=== PATIENT | female | born 1940 | race Caucasian/White ===

== ENCOUNTER 2016-06-17 15:16 | Outpatient (CLI) | payer MEDICARE, OTHER | END 2016-06-17 15:17 | disposition home or self-care (01) | DX: R10.13 Epigastric pain (principal) ==

== ENCOUNTER 2016-06-25 06:52 | Outpatient (CLI) | payer MEDICARE, OTHER | END 2016-06-25 06:53 | disposition home or self-care (01) | DX: K80.20 Calculus of gallbladder without cholecystitis without obstruction (principal) ==

== ENCOUNTER 2016-07-06 14:36 | Outpatient (CLI) | payer MEDICARE, OTHER | END 2016-07-06 14:37 | disposition home or self-care (01) | LOC: LAB.F 14:36 | PROVIDERS: ATTEND Internal Medicine | DX: M06.9 Rheumatoid arthritis, unspecified (principal) | CPT/HCPCS: 36415; 86140 ==

== ENCOUNTER 2016-07-08 14:22 | Emergency (ER) | payer MEDICARE, OTHER ==
[2016-07-08 14:29] VITALS: BP 135/94
--- NOTE | 2016-07-08 15:17 | ED Physician Documentation ---
PD HPI ABD PAIN - Stated complaint Stated Complaint: ABD PX - Chief complaint Chief Complaint: Abd Pain - History obtained from History obtained from: Patient - History of Present Illness Timing - onset: How many weeks ago (2) Timing - duration: Weeks (2) Timing - details: Gradual onset, Still present Quality: Sharp, Pain Location: RUQ Improved by: Laying still Worsened by: Eating Associated symptoms: Nausea Similar symptoms before: Diagnosis (cholelithiasis) Recently seen: Clinic (The patient has been seen and had an ultrasound done on showing the stones.) - Additional information Additional information: 76 y/o female gives a history of RUQ pain that she states has been present for the past 2 weeks. She is vague about the history but insists that the pain has been continuous. I asked if it kept her awake at night and she indicated that she sleeps very well. She has not had fever and she has not followed up with surgery. Review of Systems Constitutional: denies: Fever, Chills, Myalgias Eyes: denies: Decreased vision Ears: denies: Ear pain Nose: denies: Congestion Throat: denies: Sore throat Cardiac: denies: Chest pain / pressure, Palpitations Respiratory: denies: Dyspnea, Cough GI: reports: Abdominal Pain, Nausea. 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 HEENT: Cataracts - Present Medications Home Medications: Ambulatory Orders Medication Instructions Recorded Confirmed Calcium Crb,Cit/D3/Min34/[place] 1 each PO DAILY 12/31/12 12/16/14 [Citracal + Bone Density Tablet] Cholecalciferol (Vitamin D3) 2,000 unit PO DAILY 12/31/12 12/16/14 [Vitamin D-3] Folic Acid 1 mg PO DAILY 12/31/12 12/16/14 Methotrexate Sodium/Pf 0.05 12/31/12 12/16/14 [Methotrexate 1 Gram/40 ml Vial] Multivitamin/Iron/Folic Acid 1 each PO DAILY 12/31/12 12/16/14 [Centrum Complete Multivit Tab] Sulfasalazine [Sulfazine] 500 mg PO BID 12/31/12 12/16/14 Vit A,C & E/Lutein/Minerals 1 each PO DAILY 12/31/12 12/16/14 [Ocuvite Tablet] Albuterol Sulf [Ventolin Hfa 1 - 2 puffs INH Q4HR PRN #1 inhaler 12/08/15 Inhaler] Donepezil HCl [Aricept] 10 mg 12/08/15 Zoledronic Acid [Reclast] 5 mg 12/08/15 predniSONE [Deltasone] 10 mg PO DAILY #26 tablet 12/08/15 - Allergies Allergies/Adverse Reactions: Allergies Allergy/AdvReac Type Severity Reaction Status Date / Time No Known Drug Allergies Allergy Verified 07/08/16 14:28 - Social History Does the pt smoke?: No Smoking Status: Never smoker Does the pt drink ETOH?: Yes PD ED PE NORMAL - Vitals Vital signs reviewed: Yes (hypertensive ) - General General: No acute distress, Well developed/nourished - HEENT HEENT: Atraumatic, PERRL - Neck Neck: Supple, no meningeal sign - Cardiac Cardiac: RRR, No murmur - Respiratory Respiratory: No respiratory distress, Clear bilaterally - Abdomen Abdomen: Soft, Other (specific right upper quadrant pain sonographically tender gallbladder. on bedside. ) - Back Back: No CVA TTP, No spinal TTP - Derm Derm: Normal color, Warm and dry, No rash - Extremities Extremities: No deformity, No edema - Neuro Neuro: No motor deficit, No sensory deficit - Psych Psych: Normal mood, Normal affect Results - Vitals Vitals: Vital Signs - 24 hr 07/08/16 14:24 Temperature 36.5 C Heart Rate 90 Respiratory 14 Rate Blood Pressure 135/94 H O2 Saturation 99 Oxygen O2 Source Room air - Labs Labs: Laboratory Tests 07/08/16 07/08/16 07/08/16 15:00 15:00 15:00 WBC 5.5 RBC 4.04 L Hgb 12.0 Hct 36.7 L MCV 91.0 MCH 29.8 MCHC 32.8 RDW 14.3 Plt Count 288 MPV 6.8 L Neut # 3.0 Lymph # 1.6 [place] # 0.7 Eos # 0.1 Baso # 0.0 Absolute Nucleated RBC 0.00 Nucleated RBCs 0.0 Sodium 138 Potassium 3.8 Chloride 106 Carbon Dioxide 22 Anion Gap 10.0 BUN 22 H Creatinine 0.6 Estimated GFR (MDRD) 97 Glucose 99 Calcium 8.8 Total Bilirubin 0.6 AST 21 ALT 26 Alkaline Phosphatase 72 Troponin I < 0.04 Total Protein 6.7 Albumin 3.9 Globulin 2.8 Albumin/Globulin Ratio 1.4 Lipase 53 H - Rads (name of study) U/S abd ltd Radiology: Prelim report reviewed (Impression: 1. Cholelithiasis without evidence of cholecystitis. 2. New mild right hydronephrosis. Correlate clinically determine if obstructive uropathy might etiology of this lady's persistent symptoms. If so, CT abdomen pelvis without contrast may be useful. ( However, cursory review of the patient's contrast CT study 06/23/2014 shows a small bilateral extra renal pelvis his but no hydronephrosis nor renal stones.)) Procedures - Bedside sono Bedside sono by EMP: with the use of bedside ultrasound the gallbladder is imaged and is sonographically tender with stones present. PD MEDICAL DECISION MAKING - ED course Complexity details: reviewed old records, reviewed results, re-evaluated patient , considered differential, d/w patient ED course: 76 y/o female with some mild dementia has developed gallbladder symptoms. She reports a 2 week history of continued pain and on exam she has a tender gallbladder with stones present. Interestingly, after sonographic exam by myself , her pain improved. Her formal exam demonstrates the stones and no evidence of obstruction or cholecyctitis. I have discussed findings with the patient and she will follow up with surgery. Departure - Departure Disposition: 01 Home, Self Care Clinical Impression: Cholelithiasis Qualifiers: Cholelithiasis location: gallbladder Cholecystitis presence: without cholecystitis Biliary obstruction: without biliary obstruction Qualified Code(s) : K80.20 - Calculus of gallbladder without cholecystitis without obstruction Condition: Stable Instructions: ED Gallstone W Biliary Colic Follow-Up: Hollis Perez MD [Primary Care Provider] - Juan Craig MD [Provider Admit Priv/Credential] -
[2016-07-08 15:27] LABS: BASOPHILS % (AUTO) 0.8 %; EOSINOPHILS # (AUTO) 0.1 10^3/uL (0.0-0.7); EOSINOPHILS % (AUTO) 1.5 %; HCT - HEMATOCRIT 36.7 % (37.0-47.0); LYMPHOCYTES # (AUTO) 1.6 10^3/uL (1.5-3.5); LYMPHOCYTES % (AUTO) 29.6 %; MEAN CORPUSCULAR HEMOGLOBIN 29.8 pg (27.0-31.0); MEAN CORPUSCULAR HGB CONC 32.8 g/dL (32.0-36.0); MEAN PLATELET VOLUME 6.8 fL (7.9-10.8); MONOCYTES # (AUTO) 0.7 10^3/uL (0.0-1.0); MONOCYTES % (AUTO) 13.3 %; NEUTROPHILS % (AUTO) 54.8 %; RED BLOOD COUNT 4.04 10^6/uL (4.20-5.40); RED CELL DISTRIBUTION WIDTH 14.3 % (12.0-15.0); UNCORRECTED WHITE BLOOD COUNT 5.5 x10^3/uL; WHITE BLOOD COUNT 5.5 x10^3/uL (4.8-10.8)
[2016-07-08 15:41] LABS: ALBUMIN/GLOBULIN RATIO 1.4 (1.0-2.2); BILIRUBIN,TOTAL 0.6 mg/dL (0.2-1.0); CALCIUM 8.8 mg/dL (8.5-10.3); CREATININE 0.6 mg/dL (0.4-1.0); POTASSIUM 3.8 mmol/L (3.5-5.0); TOTAL PROTEIN 6.7 g/dL (6.7-8.2)
--- NOTE | 2016-07-08 17:22 | Ultrasound Preliminary Report ---
Exam: US ABDOMEN LIMITED IMPRESSION: 1. Cholelithiasis without evidence of cholecystitis. 2. New mild right hydronephrosis. Correlate clinically to determine if obstructive uropathy might be the etiology of this lady's persistent symptoms. If so, CT abdomen and pelvis without contrast may be useful. (However, cursory review of the patient's contrast CT study study 06/23/2014 shows small andi ateral extrarenal pelvises but no hydronephrosis nor renal stones.) [facility] SITE ID: [id number]
--- NOTE | 2016-07-08 17:53 | Ultrasound Report ---
EXAM: ABDOMEN ULTRASOUND LIMITED, RUQ EXAM DATE: 07/08/2016 04:54 PM. CLINICAL HISTORY: Gallstones. Persistent right upper quadrant pain. COMPARISON: 06/25/2016. TECHNIQUE: Real-time scanning was performed with static images obtained. FINDINGS: Liver: Normal in size and echotexture. 13.8 cm. Main portal vein flow: Hepatopetal. Gallbladder: Numerous tiny mobile gallstones. Gallbladder of normal caliber. No gallbladder wall thic kening, focal tenderness, nor pericholecystic fluid. Biliary System: CBD measures 2.9 mm. No intrahepatic or extrahepatic ductal dilatation. Other: Interval development of mild right hydronephrosis. IMPRESSION: 1. Cholelithiasis without evidence of cholecystitis. 2. New mild right hydronephrosis. Correlate clinically to determine if obstructive uropathy might be the etiology of this lady's persistent symptoms. If so, CT abdomen and pelvis without contrast may be useful. (However, cursory review of the patient's contrast CT study 06/23/2014 shows small bilateral extrarenal pelvises but no hydronephrosis nor renal stones.) [facility] Referring Provider Line: [phone] SITE ID: [id number]
== END 2016-07-08 17:53 | disposition home or self-care (01) ==
LOC: ED 14:22
DX: K80.20 Calculus of gallbladder without cholecystitis without obstruction (principal)
CPT/HCPCS: 36415; 76705; 80053; 83690; 84484; 85025; 99283; 99284

== ENCOUNTER 2016-07-22 09:34 | Outpatient (CLI) | payer MEDICARE, OTHER ==
--- NOTE | 2016-07-22 12:34 | CT Report ---
CT ABDOMEN AND PELVIS WITHOUT CONTRAST: 07/22/2016 CLINICAL INDICATION: Possible right hydronephrosis on ultrasound. TECHNIQUE: Axial CT images of the abdomen and pelvis were obtained without intravenous contrast. In accordance with CT protocol optimization, one or more of the following dose reduction techniques w ere utilized for this exam: automated exposure control, adjustment of mA and/or KV based on patient size, or use of iterative reconstructive technique. COMPARISON: Ultrasound 07/08/2016, 06/25/2016, CT abdomen and pelvis 06/23/2014. FINDINGS: Limited evaluation of the lung bases demonstrates emphysema. Abdomen: The kidneys demonstrate extrarenal pelves. No hydronephrosis or nephrolithiasis is seen. The appearance of the kidneys is stable from 06/23/2014. The liver, spleen, pancreas, and adrenal gl ands appear unremarkable. The gallbladder is not dilated. Layering calculi are noted dependently. No bowel dilatation, free gas, or free fluid is present. No abdominal adenopathy is seen. Pelvis: The pelvic organs appear unremarkable. No pelvic adenopathy or free fluid is present. The patient is status post hysterectomy. There is a right inguinal hernia present, containing fat, witho ut evidence of bowel herniation. Osseous structures demonstrate degenerative changes. IMPRESSION: 1. NO EVIDENCE OF HYDRONEPHROSIS OR NEPHROLITHIASIS. STABLE APPEARANCE OF THE KIDNEYS FROM PREVIOUS CT OF 06/23/2014. 2. CHOLELITHIASIS. 3. RIGHT INGUINAL HERNIA, CONTAINING FAT, WITHOUT EVIDENCE OF BOWEL HERNIATION. JOB #: [id number] EXT JOB #:[id number]
== END 2016-07-22 09:35 | disposition home or self-care (01) ==
LOC: DI 09:34
PROVIDERS: ATTEND Surgery
DX: K80.20 Calculus of gallbladder without cholecystitis without obstruction (principal); K44.9 Diaphragmatic hernia without obstruction or gangrene
CPT/HCPCS: 74176

== ENCOUNTER 2017-01-09 15:32 | Outpatient (CLI) | payer MEDICARE, OTHER | END 2017-01-09 15:33 | disposition critical access hospital (66) | LOC: EMS 15:32 | PROVIDERS: ATTEND Surgery | DX: T14.90XA Injury, unspecified, initial encounter (principal); W01.0XXA Fall on same level from slipping, tripping and stumbling without subsequent striking against object, initial encounter; Y92.038 Other place in apartment as the place of occurrence of the external cause | CPT/HCPCS: A0425; A0427 ==

== ENCOUNTER 2017-01-09 15:57 | Emergency (ER) | payer MEDICARE, OTHER ==
[2017-01-09] MEDS ORDERED: MORPHINE 10 MG/ML VIAL IVP STA (16:07)
--- NOTE | 2017-01-09 16:09 | ED Physician Documentation ---
PD HPI UPPER EXT INJURY - Stated complaint Stated Complaint: FALL - Chief complaint Chief Complaint: Ext Problem - History obtained from History obtained from: Patient, EMS - History of Present Illness Location: Other (She had a trip and fall getting off the elevator at [facility] today landing on her left arm. It was an isolated injury. At first she says she is in no pain, then says my arm hurts like heck. She denies hitting her head or neck. 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 HEENT: Cataracts - Present Medications Home Medications: Ambulatory Orders Medication Instructions Recorded Confirmed Cholecalciferol (Vitamin D3) 2,000 unit PO DAILY 12/31/12 01/09/17 [Vitamin D-3] Multivitamin/Iron/Folic Acid 1 each PO DAILY 12/31/12 01/09/17 [Centrum Complete Multivit Tab] Sulfasalazine [Sulfazine] 1,000 mg PO BID 12/31/12 01/09/17 Donepezil HCl [Aricept] 10 mg ORAL DAILY 12/08/15 01/09/17 Amlodipine Besylate [Norvasc] 2.5 mg PO DAILY 01/09/17 01/09/17 HYDROcod/ACETAM 5/325 [[place] 5/325] 1 - 2 ea PO Q6H PRN #20 tablet 01/09/17 Sertraline [Zoloft] 25 mg PO DAILY 01/09/17 01/09/17 - Allergies Allergies/Adverse Reactions: Allergies Allergy/AdvReac Type Severity Reaction Status Date / Time No Known Drug Allergies Allergy Verified 01/09/17 16:05 - Social History Does the pt smoke?: No Smoking Status: Never smoker Does the pt drink ETOH?: Yes PD ED PE NORMAL - Vitals Vital signs reviewed: Yes - General General: Alert and oriented X 3, No acute distress - HEENT HEENT: PERRL, EOMI - Neck Neck: Supple, no meningeal sign, No bony TTP - Cardiac Cardiac: RRR, No murmur - Respiratory Respiratory: No respiratory distress, Clear bilaterally - Abdomen Abdomen: Normal bowel sounds, Soft, Non tender - Extremities Extremities: Other (Quite tender to the left upper arm in the area of the proximal humerus without deformity. Cannot range at all. Normal radial pulse and sensation in all areas of the hands. The remainder of her extremities are nontender.) - Neuro Neuro: Alert and oriented X 3 Eye Opening: Spontaneous Motor: Obeys Commands Verbal: Oriented GCS Score: 15 - Psych Psych: Normal mood, Normal affect Results - Vitals Vitals: Vital Signs - 24 hr 01/09/17 01/09/17 15:58 16:45 Temperature 36.3 C L Heart Rate 77 78 Respiratory 18 18 Rate Blood Pressure 138/98 H 139/88 H O2 Saturation 98 95 Oxygen O2 Source Room air - Rads (name of study) L humerus Radiology: EMP read contemporaneously (Proximal left humerus fracture) PD MEDICAL DECISION MAKING - ED course ED course: The patient and family were counseled as to the diagnosis and need for follow- up. I counseled the patient with regard to signs and symptoms that would necessitate an urgent reevaluation in the emergency department. They understand they are welcome to return at any time if worse or if not improving as expected. This document was made in part using voice recognition software. While efforts are made to proofread this documents, sound alike and grammatical errors may occur. Departure - Departure Disposition: 01 Home, Self Care Clinical Impression: Left humeral fracture Qualifiers: Encounter type: initial encounter Humerus Location: proximal Fracture type: closed Fracture morphology: other fracture Fracture alignment: nondisplaced Qualified Code(s): S42.295A - Other nondisplaced fracture of upper end of left humerus, initial encounter for closed fracture Condition: Good Record reviewed to determine appropriate education?: Yes Instructions: ED Fx Upper Ext Follow-Up: [facility] [Provider Group] - Within 1 week Prescriptions: HYDROcod/ACETAM 5/325 [[place] 5/325] 1 - 2 ea PO Q6H PRN #20 tablet PRN Reason: Pain Comments: Your blood pressure was elevated today on check into the emergency department. This does not mean that you have hypertension, it is a common phenomenon to come to the emergency department and have elevated blood pressure. I recommend that you see your primary care physician within the week to have it rechecked when you are feeling better. Do not drink or drive while taking narcotic pain medication. Note that many narcotic pain relievers also contain Tylenol/acetaminophen. Please ensure that your total dose of acetaminophen from all sources does not exceed 3 g (3000 mg) per day. You may get constipated while on this medication. Take a stool softener such as Colace twice a day while you are on it. Also add an [id number] laxative such as senna or MiraLAX on any day that you do not have a bowel movement. If you received a narcotic pain medication or sedative while in the emergency department, do not drive for the next 24 hours.
[2017-01-09] MEDS ORDERED: MORPHINE 10 MG/ML VIAL ONE (16:35)
--- NOTE | 2017-01-09 17:03 | XRAY Preliminary Report ---
Exam: XR HUMERUS LT IMPRESSION: Transversely oriented fracture to the proximal left humerus. A fracture line extends thro ugh the surgical neck. There is likely extension through the tuberosities. There is no evidence of di slocation. [facility] SITE ID: [id number]
--- NOTE | 2017-01-09 17:05 | XRAY Report ---
EXAM: LEFT HUMERUS RADIOGRAPHY EXAM DATE: 01/09/2017 04:30 PM. CLINICAL HISTORY: Trauma, pain. COMPARISON: None. TECHNIQUE: 2 views. FINDINGS: Bones: There is transversely orientated fracture through the proximal left humerus. Likely extension of fracture through the tuberosities. Joints: No evidence of dislocation. Soft Tissues: Normal. No soft tissue swelling. IMPRESSION: Transversely oriented fracture to the proximal left humerus. A fracture line extends thro ugh the surgical neck. There is likely extension through the tuberosities. There is no evidence of di slocation. [facility] Referring Provider Line: [phone] SITE ID: [id number]
[2017-01-09 17:40] VITALS: BP 124/74
== END 2017-01-09 17:37 | disposition home or self-care (01) ==
LOC: EDUNIT# → ED 15:57
DX: S42.295A Other nondisplaced fracture of upper end of left humerus, initial encounter for closed fracture (principal); W18.30XA Fall on same level, unspecified, initial encounter; I10 Essential (primary) hypertension; M06.9 Rheumatoid arthritis, unspecified
CPT/HCPCS: 96374; 99283; 99284

== ENCOUNTER 2017-11-12 13:41 | Outpatient (CLI) | payer MEDICARE, OTHER | END 2017-11-12 13:42 | disposition critical access hospital (66) | LOC: EMS 13:41 | PROVIDERS: ATTEND Surgery | DX: R52 Pain, unspecified (principal) | CPT/HCPCS: A0425; A0427 ==

== ENCOUNTER 2017-11-12 13:44 | Emergency (ER) | payer MEDICARE, OTHER ==
[2017-11-12 13:55] VITALS: BP 139/68
--- NOTE | 2017-11-12 14:01 | ED Physician Documentation ---
History of Present Illness - Stated complaint Stated Complaint: ANKLE SWELLING - Chief complaint Chief Complaint: General - History obtained from History obtained from: Patient, EMS - History of Present Illness Timing: Today (Per EMS, she was normal at breakfast but did not show up for Lunch ([place]). They went to check on her and had a lot of pain with ROM of LLE. No recollected fall but has dementia. 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 HEENT: Cataracts - Present Medications Home Medications: Ambulatory Orders Medication Instructions Recorded Confirmed Cholecalciferol (Vitamin D3) 2,000 unit PO DAILY 12/31/12 01/09/17 [Vitamin D-3] Multivitamin/Iron/Folic Acid 1 each PO DAILY 12/31/12 01/09/17 [Centrum Complete Multivit Tab] Sulfasalazine [Sulfazine] 1,000 mg PO BID 12/31/12 01/09/17 Donepezil HCl [Aricept] 10 mg ORAL DAILY 12/08/15 01/09/17 Amlodipine Besylate [Norvasc] 2.5 mg PO DAILY 01/09/17 01/09/17 HYDROcod/ACETAM 5/325 [[place] 5/325] 1 - 2 ea PO Q6H PRN #20 tablet 01/09/17 Sertraline [Zoloft] 25 mg PO DAILY 01/09/17 01/09/17 - Allergies Allergies/Adverse Reactions: Allergies Allergy/AdvReac Type Severity Reaction Status Date / Time No Known Drug Allergies Allergy Verified 11/12/17 13:55 - Social History Does the pt smoke?: No Smoking Status: Never smoker Does the pt drink ETOH?: Yes Does the pt have substance abuse?: No PD ED PE NORMAL - Vitals Vital signs reviewed: Yes - General General: Other (She is alert and pleasant and follows commands. She knows she is in the hospital but not why. She does not recollect this morning.) - HEENT HEENT: PERRL, EOMI - Neck Neck: Supple, no meningeal sign, No bony TTP - Cardiac Cardiac: RRR, No murmur - Respiratory Respiratory: No respiratory distress, Clear bilaterally - Abdomen Abdomen: Normal bowel sounds, Soft, Non tender - Extremities Extremities: Other (All extremities are palpated. She has significant changes of arthritis in the hands. She is quite tender over the right clavicle. She is tender over the left anterior superior iliac spine and also the anterior left knee and lateral left ankle. There is no swelling in any of these areas. 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 She does not remember any specific injury. She was sent for x-rays of the affected areas and all were negative. After the x-rays we got her up and she was ambulatory without any evidence of pain or discomfort. - Sepsis Event Vital Signs: Vital Signs - 24 hr 11/12/17 13:50 Temperature 36.5 C Heart Rate 76 Respiratory 16 Rate Blood Pressure 139/68 H O2 Saturation 97 Oxygen O2 Source Room air Departure - Departure Disposition: 01 Home, Self Care Clinical Impression: Left leg pain Right shoulder pain Qualifiers: Chronicity: acute Qualified Code(s): M25.511 - Pain in right shoulder Condition: Good Record reviewed to determine appropriate education?: Yes Instructions: ED Contusion Lower Ext Comments: X-rays of the right clavicle, left hip, left ankle, and left knee were done without evidence of fracture or abnormality. She has been ambulatory here without pain. Your blood pressure was elevated today on check into the emergency department. This does not mean that you have hypertension, it is a common phenomenon to come to the emergency department and have elevated blood pressure. I recommend that you see your primary care physician within the week to have it rechecked when you are feeling better.
--- NOTE | 2017-11-12 15:20 | XRAY Report ---
Reason: Poss Fall (dementia), tenderness Procedure Date: 11/12/2017 Accession Number: [id number] / [id number] Procedure: XR - Ankle 3 View LT CPT Code: FULL RESULT: EXAM: LEFT ANKLE RADIOGRAPHY EXAM DATE: 11/12/2017 02:52 PM. CLINICAL HISTORY: Fall. Unable to bear weight. COMPARISON: None. TECHNIQUE: 3 views. FINDINGS: Bones: Normal. No fractures or bone lesions. Joints: Normal. No effusion. No subluxations. The ankle mortise is normally aligned. Soft Tissues: There is lateral ankle soft tissue swelling. IMPRESSION: No fracture or subluxation. [facility]
--- NOTE | 2017-11-12 15:22 | XRAY Report ---
Reason: Poss Fall (dementia), tenderness Procedure Date: 11/12/2017 Accession Number: [id number] / [id number] Procedure: XR - Knee 3 View LT CPT Code: FULL RESULT: EXAM: LEFT KNEE RADIOGRAPHY EXAM DATE: 11/12/2017 02:52 PM. CLINICAL HISTORY: Fall. Unable to bear weight. COMPARISON: None. TECHNIQUE: 3 views. FINDINGS: Bones: No fracture is demonstrated. The joint space and alignment appear satisfactory. Joints: Normal. No effusion. No subluxations. Soft Tissues: Normal. No soft tissue swelling. IMPRESSION: 1. No fracture or joint effusion. [facility]
--- NOTE | 2017-11-12 15:22 | XRAY Report ---
Reason: Poss Fall (dementia), tenderness Procedure Date: 11/12/2017 Accession Number: [id number] / [id number] Procedure: XR - Clavicle RT CPT Code: FULL RESULT: EXAM: RIGHT CLAVICLE RADIOGRAPHY EXAM DATE: 11/12/2017 02:52 PM. CLINICAL HISTORY: Injury with pain COMPARISON: SHOULDER 2 VIEW LT 01/12/2017 10:37 AM. TECHNIQUE: 2 views. FINDINGS: Bones: Normal. No fracture or bone lesion. Joints: The acromioclavicular and sternoclavicular joints are normal. No subluxation. Soft Tissues: Normal. No soft tissue swelling. IMPRESSION: No fracture or displacement. [facility]
--- NOTE | 2017-11-12 15:26 | XRAY Report ---
Reason: Poss Fall (dementia), tenderness Procedure Date: 11/12/2017 Accession Number: [id number] / [id number] Procedure: XR - Hip w/Pelvis 2-3V LT CPT Code: FULL RESULT: EXAM: LEFT HIP AND PELVIS RADIOGRAPHY EXAM DATE: 11/12/2017 02:52 PM. HISTORY: Fall and unable to bear weight COMPARISONS: None. TECHNIQUE: 1 view of the pelvis and 1 view of the hip. FINDINGS: Bones: Normal. No fracture or bone lesion. Joints: The bilateral hip, pubis symphysis, and sacroiliac joints are preserved. Soft Tissues: Normal. No soft tissue swelling. IMPRESSION: No fracture or subluxation. [facility]
== END 2017-11-12 16:31 | disposition home or self-care (01) ==
LOC: EDUNIT# → EDSEX → ED 13:44
DX: M79.662 Pain in left lower leg (principal); I10 Essential (primary) hypertension; M06.9 Rheumatoid arthritis, unspecified
CPT/HCPCS: 99282; 99283

== ENCOUNTER 2017-12-01 16:00 | Outpatient (CLI) | payer MEDICARE, OTHER ==
[2017-12-01 17:36] LABS: BASOPHILS % (AUTO) 0.9 %; EOSINOPHILS # (AUTO) 0.2 10^3/uL (0.0-0.7); EOSINOPHILS % (AUTO) 2.9 %; LYMPHOCYTES # (AUTO) 1.7 10^3/uL (1.5-3.5); LYMPHOCYTES % (AUTO) 32.6 %; MEAN CORPUSCULAR HEMOGLOBIN 31.6 pg (27.0-31.0); MEAN CORPUSCULAR HGB CONC 33.4 g/dL (32.0-36.0); MEAN CORPUSCULAR VOLUME 94.5 fL (81.0-99.0); MEAN PLATELET VOLUME 6.9 fL (7.9-10.8); MONOCYTES # (AUTO) 0.7 10^3/uL (0.0-1.0); MONOCYTES % (AUTO) 13.7 %; NEUTROPHILS # (AUTO) 2.6 10^3/uL (1.5-6.6); NEUTROPHILS % (AUTO) 49.9 %; PLT - PLATELET COUNT 336 10^3/uL (130-450); RED BLOOD COUNT 3.81 10^6/uL (4.20-5.40); RED CELL DISTRIBUTION WIDTH 14.4 % (12.0-15.0); WHITE BLOOD COUNT 5.3 x10^3/uL (4.8-10.8)
[2017-12-01 18:00] LABS: ALBUMIN 4.2 g/dL (3.2-5.5); ALBUMIN/GLOBULIN RATIO 1.6 (1.0-2.2); BILIRUBIN,TOTAL 0.3 mg/dL (0.2-1.0); CALCIUM 9.4 mg/dL (8.5-10.3); CREATININE 0.8 mg/dL (0.4-1.0); TOTAL PROTEIN 6.9 g/dL (6.7-8.2)
== END 2017-12-01 16:01 | disposition home or self-care (01) ==
LOC: LAB.F 16:00
PROVIDERS: ATTEND Physician Assistant Medical
DX: I10 Essential (primary) hypertension (principal)
CPT/HCPCS: 80053; 85025

== ENCOUNTER 2018-07-26 13:08 | Outpatient (CLI) | payer MEDICARE, OTHER | END 2018-07-26 13:09 | disposition critical access hospital (66) | LOC: EMS 13:08 | PROVIDERS: ATTEND Surgery | DX: R53.83 Other fatigue (principal); R46.4 Slowness and poor responsiveness | CPT/HCPCS: A0425; A0427 ==

== ENCOUNTER 2018-07-26 13:33 | Emergency (ER) | payer MEDICARE, OTHER ==
[2018-07-26] MEDS ORDERED: SODIUM CHLORIDE 0.9% 1,000 ML IV ONE (14:01)
[2018-07-26] MEDS ORDERED: ALBUTEROL NEB 2.5 MG/3 ML INH STA (14:01)
[2018-07-26 14:25] LABS: BASOPHILS % (AUTO) 0.6 %; EOSINOPHILS # (AUTO) 0.1 10^3/uL (0.0-0.7); EOSINOPHILS % (AUTO) 1.4 %; HGB - HEMOGLOBIN 12.7 g/dL (12.0-16.0); LYMPHOCYTES # (AUTO) 0.7 10^3/uL (1.5-3.5); LYMPHOCYTES % (AUTO) 9.2 %; MEAN CORPUSCULAR HGB CONC 33.2 g/dL (32.0-36.0); MEAN CORPUSCULAR VOLUME 90.4 fL (81.0-99.0); MEAN PLATELET VOLUME 6.7 fL (7.9-10.8); MONOCYTES # (AUTO) 0.5 10^3/uL (0.0-1.0); MONOCYTES % (AUTO) 7.4 %; NEUTROPHILS % (AUTO) 81.4 %; PLT - PLATELET COUNT 265 10^3/uL (130-450); RED BLOOD COUNT 4.23 10^6/uL (4.20-5.40); RED CELL DISTRIBUTION WIDTH 14.2 % (12.0-15.0); WHITE BLOOD COUNT 7.3 x10^3/uL (4.8-10.8)
[2018-07-26 14:35] LABS: ALBUMIN/GLOBULIN RATIO 1.3 (1.0-2.2); BILIRUBIN,TOTAL 0.5 mg/dL (0.2-1.0); CALCIUM 8.6 mg/dL (8.5-10.3); CREATININE 0.8 mg/dL (0.4-1.0); TOTAL PROTEIN 7.2 g/dL (6.7-8.2)
--- NOTE | 2018-07-26 14:56 | XRAY Report ---
Reason: dyspnea/ cough Procedure Date: 07/26/2018 Accession Number: [id number] / [id number] Procedure: XR - Chest 2 View X-Ray CPT Code: 24560 FULL RESULT: EXAM: CHEST RADIOGRAPHY EXAM DATE: 07/26/2018 02:35 PM. CLINICAL HISTORY: Dyspnea/ cough. COMPARISON: CHEST 2 VIEW PA/LAT 12/08/2015 12:39 PM. TECHNIQUE: 2 views. FINDINGS: Lungs/Pleura: Allowing for hypoventilatory chest, there is no significant parenchymal abnormality. Normal pleural spaces. Mediastinum: The cardiac silhouette is accentuated by AP technique and poor inspiratory effort. Normal pulmonary vasculature. Other: None. IMPRESSION: Hypoventilatory chest with no acute abnormality. [facility]
[2018-07-26] MEDS ORDERED: cefTRIAXone 1 GM VIAL IVP STA (15:20)
[2018-07-26] MEDS ORDERED: DEXAMETHASONE 10 MG/ML VIAL IVP STA (15:20)
[2018-07-26] MEDS ORDERED: DOXYCYCLINE 100 MG TABLET PO STA (15:21)
--- NOTE | 2018-07-26 15:25 | ED Physician Documentation ---
PD HPI URI - Stated complaint Stated Complaint: SHAKY - Chief complaint Chief Complaint: General - History obtained from History obtained from: Patient, EMS, Caregiver (from [place]) - History of Present Illness Timing - onset: How many days ago (few) Timing duration: Days (few) Timing details: Gradual onset, Still present (worse weakness today, with increased cough, some fever.) Associated symptoms: Fever, Nasal congestion, Productive cough, Dyspnea. No: Hemoptysis, NVD, Bilateral edema Contributing factors: No: Sick contact Worsened by: Breathing (deep breathing contributes to more coughing) Similar symptoms before: Has not had sx before Recently seen: Not recently seen Review of Systems Constitutional: reports: Fever Nose: reports: Congestion Throat: denies: Sore throat Cardiac: denies: Chest pain / pressure Respiratory: reports: Dyspnea, Cough GI: reports: Nausea. denies: Abdominal Pain, Vomiting, Diarrhea Skin: denies: Rash Musculoskeletal: denies: Back pain Neurologic: reports: Generalized weakness. 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, Hysterectomy HEENT: Cataracts - Present Medications Home Medications: Ambulatory Orders Medication Instructions Recorded Confirmed Cholecalciferol (Vitamin D3) 2,000 unit PO DAILY 12/31/12 01/09/17 [Vitamin D-3] Multivitamin/Iron/Folic Acid 1 each PO DAILY 12/31/12 01/09/17 [Centrum Complete Multivit Tab] Sulfasalazine [Sulfazine] 1,000 mg PO BID 12/31/12 01/09/17 Donepezil HCl [Aricept] 10 mg ORAL DAILY 12/08/15 01/09/17 Amlodipine Besylate [Norvasc] 2.5 mg PO DAILY 01/09/17 01/09/17 Albuterol Sulf [Ventolin Hfa 2 puffs INH QID #1 inhaler 07/26/18 Inhaler] Doxycycline Hyclate 100 mg PO BID #14 capsule 07/26/18 Inhaler, Assist Devices 1 each MC QID #1 spacer 07/26/18 [Breatherite] Metoclopramide [Reglan] 5 mg ACHS 07/26/18 07/26/18 Quetiapine Fumarate 25 mg 07/26/18 dexAMETHasone [Decadron] 4 mg PO DAILY #5 tablet 07/26/18 - Allergies Allergies/Adverse Reactions: Allergies Allergy/AdvReac Type Severity Reaction Status Date / Time etanercept [From Enbrel] Allergy Unknown Verified 07/26/18 13:45 - Social History Does the pt smoke?: No Smoking Status: Never smoker Does the pt drink ETOH?: Yes Does the pt have substance abuse?: No - Immunizations Immunizations are current?: Yes - POLST Patient has POLST: No PD ED PE NORMAL - Vitals Vital signs reviewed: Yes - General General: Alert and oriented X 3, No acute distress, Well developed/nourished - HEENT HEENT: Moist mucous membranes, Pharynx benign - Neck Neck: Supple, no meningeal sign, No adenopathy - Cardiac Cardiac: RRR, No murmur - Respiratory Respiratory: No: Clear bilaterally (congested sounds left mid to upper lung fie ld. Decreased breath sounds without wheezes per se. ) - Abdomen Abdomen: Soft, Non tender - Back Back: No CVA TTP - Derm Derm: Normal color, Warm and dry - Extremities Extremities: No deformity, No tenderness to palpate, Normal ROM s pain, No e brandt, No calf tenderness / cord - Neuro Neuro: Alert and oriented X 3, No motor deficit, Normal speech Results - Vitals Vitals: Vital Signs - 24 hr 07/26/18 07/26/18 07/26/18 13:33 14:34 14:52 Temperature 38.2 C H Heart Rate 83 112 H Respiratory 16 24 Rate Blood Pressure 177/150 H O2 Saturation 100 07/26/18 15:28 Temperature Heart Rate 101 H Respiratory 16 Rate Blood Pressure 174/76 H O2 Saturation 94 Oxygen O2 Source Room air - Labs Labs: Laboratory Tests 07/26/18 07/26/18 07/26/18 14:15 14:15 14:15 WBC 7.3 RBC 4.23 Hgb 12.7 Hct 38.3 MCV 90.4 MCH 30.0 MCHC 33.2 RDW 14.2 Plt Count 265 MPV 6.7 L Neut # (Auto) 6.0 Lymph # (Auto) 0.7 L [place] # (Auto) 0.5 Eos # (Auto) 0.1 Baso # (Auto) 0.0 Absolute Nucleated RBC 0.00 Nucleated RBC % 0.0 Sodium 138 Potassium 3.7 Chloride 104 Carbon Dioxide 22 Anion Gap 12.0 BUN 16 Creatinine 0.8 Estimated GFR (MDRD) 69 L Glucose 134 H Lactic Acid Calcium 8.6 Magnesium 2.0 Total Bilirubin 0.5 AST 16 ALT 12 Alkaline Phosphatase 70 Troponin I < 0.04 B-Natriuretic Peptide Total Protein 7.2 Albumin 4.0 Globulin 3.2 Albumin/Globulin Ratio 1.3 Lipase 48 07/26/18 07/26/18 14:15 14:15 WBC RBC Hgb Hct MCV MCH MCHC RDW Plt Count MPV Neut # (Auto) Lymph # (Auto) [place] # (Auto) Eos # (Auto) Baso # (Auto) Absolute Nucleated RBC Nucleated RBC % Sodium Potassium Chloride Carbon Dioxide Anion Gap BUN Creatinine Estimated GFR (MDRD) Glucose Lactic Acid 1.4 Calcium Magnesium Total Bilirubin AST ALT Alkaline Phosphatase Troponin I B-Natriuretic Peptide 22 Total Protein Albumin Globulin Albumin/Globulin Ratio Lipase - Rads (name of study) chest xray Radiology: Prelim report reviewed (hypoventilatory chest without acute infiltrates), EMP read contemporaneously, See rad report PD MEDICAL DECISION MAKING - ED course Complexity details: considered differential (sounds like URI versus bronchitis, and clinically seems like early pneumonia with lung congestion left, fever, dyspnea, and fatigue. ), d/w patient Departure - Departure Disposition: 01 Home, Self Care Clinical Impression: Generalized weakness Acute bronchitis Qualifiers: Bronchitis organism: unspecified organism Qualified Code(s): J20.9 - Acute bronchitis, unspecified Condition: Stable Record reviewed to determine appropriate education?: Yes Instructions: ED Upper Resp Infec Abx Tx Follow-Up: Sylvia Machuca PA-C [Primary Care Provider] - Prescriptions: Albuterol Sulf [Ventolin Hfa Inhaler] 2 puffs INH QID #1 inhaler dexAMETHasone [Decadron] 4 mg PO DAILY #5 tablet Doxycycline Hyclate 100 mg PO BID #14 capsule Inhaler, Assist Devices [Breatherite] 1 each MC QID #1 spacer Comments: No signs of pneumonia or serious infection based on your blood test and x-ray. It does sound like you have some bronchitis and I think that may can you weaker and shaky. Your blood sugar and blood tests are good. He is an albuterol inhaler 2 puffs with the spacer 4 times a day for the next week. Use doxycycline twice daily for a week. Decadron steroid for the inflammation of the airways daily for 5 more days. Stay well-hydrated. Recheck if not improving over the next few days. Return if worsening. Discharge Date/Time: 07/26/18 16:00
[2018-07-26 15:29] VITALS: BP 174/76
== END 2018-07-26 16:00 | disposition home or self-care (01) ==
LOC: EDUNIT# → ED 13:33
DX: J20.9 Acute bronchitis, unspecified (principal); R53.1 Weakness; I10 Essential (primary) hypertension
CPT/HCPCS: 36415; 71046; 80053; 83605; 83690; 83735; 83880; 84484; 85025; 94640; 96361; 96374; 99283; 99284; A9270

== ENCOUNTER 2018-09-16 10:31 | Outpatient (CLI) | payer MEDICARE, OTHER | END 2018-09-16 10:32 | disposition critical access hospital (66) | LOC: EMS 10:31 | PROVIDERS: ATTEND Surgery | DX: R10.9 Unspecified abdominal pain (principal); R61 Generalized hyperhidrosis | CPT/HCPCS: A0425; A0427 ==

== ENCOUNTER 2018-09-16 10:59 | Emergency (ER) | payer MEDICARE, OTHER ==
[2018-09-16] MEDS ORDERED: IOVERSOL 320 100 ML VIAL IVP ONE (11:25)
[2018-09-16 11:36] LABS: BASOPHILS % (AUTO) 0.5 %; EOSINOPHILS # (AUTO) 0.2 10^3/uL (0.0-0.7); EOSINOPHILS % (AUTO) 2.5 %; HGB - HEMOGLOBIN 12.6 g/dL (12.0-16.0); LYMPHOCYTES # (AUTO) 1.8 10^3/uL (1.5-3.5); LYMPHOCYTES % (AUTO) 30.5 %; MEAN CORPUSCULAR HEMOGLOBIN 30.3 pg (27.0-31.0); MEAN CORPUSCULAR HGB CONC 33.2 g/dL (32.0-36.0); MEAN CORPUSCULAR VOLUME 91.3 fL (81.0-99.0); MEAN PLATELET VOLUME 8.3 fL (7.9-10.8); MONOCYTES # (AUTO) 0.5 10^3/uL (0.0-1.0); MONOCYTES % (AUTO) 7.7 %; NEUTROPHILS # (AUTO) 3.5 10^3/uL (1.5-6.6); NEUTROPHILS % (AUTO) 58.5 %; PLT - PLATELET COUNT 313 10^3/uL (130-450); RED BLOOD COUNT 4.16 10^6/uL (4.20-5.40); RED CELL DISTRIBUTION WIDTH 13.6 % (12.0-15.0)
[2018-09-16 11:43] LABS: INR 1.1 (0.8-1.2); PT - PROTHROMBIN TIME 12.4 secs (9.9-12.6)
[2018-09-16 11:47] LABS: ALBUMIN 4.2 g/dL (3.2-5.5); ALBUMIN/GLOBULIN RATIO 1.4 (1.0-2.2); BILIRUBIN,TOTAL 0.5 mg/dL (0.2-1.0); CALCIUM 9.6 mg/dL (8.5-10.3); CREATININE 0.9 mg/dL (0.4-1.0); TOTAL PROTEIN 7.1 g/dL (6.7-8.2)
[2018-09-16 12:08] LABS: BILIRUBIN,URINE NEGATIVE (NEGATIVE); GLUCOSE, URINE (UA) NEGATIVE (NEGATIVE); KETONES,URINE (UA) NEGATIVE (NEGATIVE); LEUKOCYTE ESTERASE, URINE NEGATIVE (NEGATIVE); NITRITE,URINE NEGATIVE (NEGATIVE); OCCULT BLOOD,URINE NEGATIVE (NEGATIVE); PROTEIN,URINE NEGATIVE (NEGATIVE); UROBILINOGEN,URINE 0.2 (NORMAL) E.U./dL (NORMAL)
[2018-09-16 12:13] LABS: CLARITY,URINE CLEAR (CLEAR)
--- NOTE | 2018-09-16 12:14 | XRAY Report ---
Reason: epigastric pain Procedure Date: 09/16/2018 Accession Number: [id number] / [id number] Procedure: XR - Chest 1 View X-Ray CPT Code: 76975 FULL RESULT: EXAM: CHEST RADIOGRAPHY EXAM DATE: 09/16/2018 11:47 AM. CLINICAL HISTORY: Epigastric Pain. COMPARISON: CHEST 2 VIEW 07/26/2018 2:04 PM. TECHNIQUE: 1 view. FINDINGS: Lungs/Pleura: No focal opacities evident. No pleural effusion. No pneumothorax. Mediastinum: Heart and mediastinal contours are notable for aortic calcification. Other: None. IMPRESSION: No acute cardiopulmonary abnormality demonstrated. RADIA
[2018-09-16] MEDS ORDERED: SODIUM CHLORIDE 0.9% 500 ML IV ONE (12:34)
--- NOTE | 2018-09-16 12:51 | CT Report ---
Reason: Severe abd pain, worse on right Procedure Date: 09/16/2018 Accession Number: [id number] / [id number] Procedure: CT - Abdomen/Pelvis W CPT Code: FULL RESULT: EXAM: CT ABDOMEN AND PELVIS EXAM DATE: 09/16/2018 12:20 PM. CLINICAL HISTORY: Severe abd pain, worse on right. COMPARISONS: ABDOMEN/PELVIS W/O 07/22/2016 10:05 AM. TECHNIQUE: Routine helical CT imaging was performed through the abdomen and pelvis. IV contrast: OPTI 320 90ML. Enteric contrast: No. Reconstructions: Coronal and sagittal. In accordance with CT protocol optimization, one or more of the following dose reduction techniques were utilized for this exam: automated exposure control, adjustment of mA and/or KV based on patient size, or use of iterative reconstructive technique. FINDINGS: Lung Bases: Pulmonary emphysema. Suspect previous surgery around the gastroesophageal junction. Coronary artery calcifications. Liver: Normal. No masses. Gallbladder/Bile Ducts: There are small layering gallstones. The gallbladder is contracted. No abnormal bile duct dilation. Spleen: Normal. Pancreas: Normal. Adrenal Glands: Normal. Kidneys: Negative for hydronephrosis. There are parapelvic cysts on the left. Peritoneal Cavity/Bowel: No free air or fluid. No bowel obstruction. There is distal colonic diverticulosis. There is faint edema in the pericolonic fat in the left lower quadrant, for example series 3 image 57. There is fecalization within pelvic small bowel loops, suggestive of small bowel stasis. The appendix is not definitely visualized. Pelvic Organs: There is air in the nondependent portion of the urinary bladder, question recent instrumentation. Absent uterus. Vasculature: There is atherosclerotic calcification in the aorta and iliac arteries without aneurysm. Patent portal vein. Bones: There is a slight convex right curvature of the upper lumbar spine. There is degenerative disk disease, most prominently at L5-S1. There is mild lower lumbar spine facet hypertrophy. Other: There is a fat-containing right inguinal hernia on series 3 image 72 measuring up to approximately 7.4 x 5.8 cm, previously measured approximately 6.4 x 5.1 cm. IMPRESSION: 1. There is air in the nondependent portion of the urinary bladder, question recent instrumentation. 2. There is a fat-containing right inguinal hernia which measures larger compared to the prior exam. 3. There is cholecystolithiasis without overt findings of acute cholecystitis. 4. There is distal colonic diverticulosis with perhaps minimal diverticulitis in the left lower quadrant. 5. Atherosclerotic vascular calcifications and other incidental findings described above. RADIA
--- NOTE | 2018-09-16 14:16 | ED Physician Documentation ---
History of Present Illness - Stated complaint Stated Complaint: ABD PX - Chief complaint Chief Complaint: Abd Pain - Additonal information Additional information: This is an 78-year-old female with history of dementia who presents from [facility] with sudden onset abdominal pain. At baseline patient has dementia and requires constant redirection. This morning she said they began complaining of some abdominal pain which is on the right upper side of her abdomen or epigastrium and radiates somewhat to her back. She had no nausea or vomiting, no urinary complaints. EMS was called and she was brought here for further evaluation. Currently she states she continues to have some abdominal pain more in center of her abdomen. Her history is limited due to her dementia. She denies having any abdominal surgeries in the past. Review of Systems Unable to obtain: Unresponsive Constitutional: denies: Fever Eyes: denies: Loss of vision Cardiac: denies: Chest pain / pressure Respiratory: denies: Dyspnea GI: reports: Abdominal Pain, Vomiting : denies: Dysuria Skin: denies: Rash Musculoskeletal: denies: Neck pain Neurologic: reports: Confused Psychiatric: reports: Anxiety PD PAST MEDICAL HISTORY - Past Medical History Past Medical History: Yes Cardiovascular: Hypertension Respiratory: Shortness of breath GI: GERD, Hiatal hernia, Colon polyps Psych: Depression, Anxiety Musculoskeletal: Osteoarthritis, Rheumatoid arthritis Derm: Psoriasis, Rosacea - Past Surgical History Past Surgical History: Yes General: Colonoscopy, EGD /SAW BOSS: section, Hysterectomy HEENT: Cataracts - Present Medications Home Medications: Ambulatory Orders Medication Instructions Recorded Confirmed Cholecalciferol (Vitamin D3) 2,000 unit PO DAILY 12/31/12 09/16/18 [Vitamin D-3] Multivitamin/Iron/Folic Acid 1 each PO DAILY 12/31/12 09/16/18 [Centrum Complete Multivit Tab] Sulfasalazine [Sulfazine] 1,000 mg PO BID 12/31/12 09/16/18 Donepezil HCl [Aricept] 10 mg ORAL DAILY 12/08/15 09/16/18 Amlodipine Besylate [Norvasc] 2.5 mg PO DAILY 01/09/17 09/16/18 RX: Metoclopramide [Reglan] 5 mg ACHS 07/26/18 09/16/18 RX: Quetiapine Fumarate 25 mg PO BID 07/26/18 09/16/18 - Allergies Allergies/Adverse Reactions: Allergies Allergy/AdvReac Type Severity Reaction Status Date / Time etanercept [From Enbrel] Allergy Unknown Verified 09/16/18 11:09 - Social History Does the pt smoke?: No Smoking Status: Never smoker Does the pt drink ETOH?: Yes Does the pt have substance abuse?: No - Immunizations Immunizations are current?: Yes - POLST Patient has POLST: No PD ED PE NORMAL - Vitals Vital signs reviewed: Yes - HEENT HEENT: Atraumatic - Cardiac Cardiac: RRR - Respiratory Respiratory: Clear bilaterally - Abdomen Abdomen: Soft, Non distended, Other (Patient is somewhat tender to palpation in the epigastrium. There is no right lower quadrant tenderness palpation, no suprapubic tenderness.) - Female Female : Other (External genitourinary exam is unremarkable without lesions) - Derm Derm: Warm and dry - Extremities Extremities: No deformity - Neuro Neuro: Other (Patient is anxious and forgetful, she requires constant redir ection and reinforcement. She is able to hold a basic conversation, but is disoriented to specific event and date. She is able to move all extremities without issue and sensation light touch intact over all extremities.) Results - Vitals Vitals: Vital Signs - 24 hr 09/16/18 09/16/18 09/16/18 11:00 11:28 12:34 Temperature 36.8 C Heart Rate 82 81 74 Respiratory 18 12 20 Rate Blood Pressure 156/115 H 163/118 H 139/63 H O2 Saturation 100 99 98 09/16/18 14:45 Temperature 36.7 C Heart Rate 75 Respiratory 16 Rate Blood Pressure 140/92 H O2 Saturation 100 Oxygen O2 Source Room air - Labs Labs: Laboratory Tests 09/16/18 09/16/18 09/16/18 11:30 11:30 11:30 WBC 6.0 RBC 4.16 L Hgb 12.6 Hct 38.0 MCV 91.3 MCH 30.3 MCHC 33.2 RDW 13.6 Plt Count 313 MPV 8.3 Neut # (Auto) 3.5 Lymph # (Auto) 1.8 [place] # (Auto) 0.5 Eos # (Auto) 0.2 Baso # (Auto) 0.0 Absolute Nucleated RBC 0.00 Nucleated RBC % 0.0 PT 12.4 INR 1.1 Sodium Potassium Chloride Carbon Dioxide Anion Gap BUN Creatinine Estimated GFR (MDRD) Glucose Lactic Acid Calcium Total Bilirubin AST ALT Alkaline Phosphatase Troponin I Troponin I High Sens 4.1 Total Protein Albumin Globulin Albumin/Globulin Ratio Lipase Urine Color Urine Clarity Urine pH Ur Specific [place] Urine Protein Urine Glucose (UA) Urine Ketones Urine Occult Blood Urine Nitrite Urine Bilirubin Urine Urobilinogen Ur Leukocyte Esterase Ur Microscopic Review Urine Culture Comments 09/16/18 09/16/18 09/16/18 11:30 11:30 11:30 WBC RBC Hgb Hct MCV MCH MCHC RDW Plt Count MPV Neut # (Auto) Lymph # (Auto) [place] # (Auto) Eos # (Auto) Baso # (Auto) Absolute Nucleated RBC Nucleated RBC % PT INR Sodium 140 Potassium 3.7 Chloride 105 Carbon Dioxide 20 L Anion Gap 15.0 H BUN 21 H Creatinine 0.9 Estimated GFR (MDRD) 60 L Glucose 104 H Lactic Acid 2.4 H Calcium 9.6 Total Bilirubin 0.5 AST 18 ALT 13 Alkaline Phosphatase 64 Troponin I < 0.04 Troponin I High Sens Total Protein 7.1 Albumin 4.2 Globulin 2.9 Albumin/Globulin Ratio 1.4 Lipase 51 Urine Color Urine Clarity Urine pH Ur Specific [place] Urine Protein Urine Glucose (UA) Urine Ketones Urine Occult Blood Urine Nitrite Urine Bilirubin Urine Urobilinogen Ur Leukocyte Esterase Ur Microscopic Review Urine Culture Comments 09/16/18 09/16/18 11:56 13:30 WBC RBC Hgb Hct MCV MCH MCHC RDW Plt Count MPV Neut # (Auto) Lymph # (Auto) [place] # (Auto) Eos # (Auto) Baso # (Auto) Absolute Nucleated RBC Nucleated RBC % PT INR Sodium Potassium Chloride Carbon Dioxide Anion Gap BUN Creatinine Estimated GFR (MDRD) Glucose Lactic Acid 1.7 Calcium Total Bilirubin AST ALT Alkaline Phosphatase Troponin I Troponin I High Sens Total Protein Albumin Globulin Albumin/Globulin Ratio Lipase Urine Color YELLOW Urine Clarity CLEAR Urine pH 8.0 H Ur Specific [place] 1.010 Urine Protein NEGATIVE Urine Glucose (UA) NEGATIVE Urine Ketones NEGATIVE Urine Occult Blood NEGATIVE Urine Nitrite NEGATIVE Urine Bilirubin NEGATIVE Urine Urobilinogen 0.2 (NORMAL) Ur Leukocyte Esterase NEGATIVE Ur Microscopic Review NOT INDICATED Urine Culture Comments NOT INDICATED PD MEDICAL DECISION MAKING - ED course Complexity details: considered differential (Cholelithiasis, biliary colic, Peptic ulcer disease, gastritis, nephrolithiasis, gastroenteritis, abdominal cramps, UTI, pyelonephritis, bowel perforation) ED course: On initial examination patient appears mildly uncomfortable and she is quite anxious. On palpation of her abdomen she does have some epigastric tenderness to palpation. IV was inserted, labs are drawn, patient was placed on the monitor, and Antiemetics and pain medications were given. CBC, CMP, lipase are unremarkable. UA is negative for infection. Troponin is negative and EKG shows no convincing signs of ischemia. CT of the abdomen pelvis with contrast was obtained which shows a fat-containing inguinal hernia with no signs of intestinal incarceration, otherwise no acute abdominal findings. On repeat examination patient is feeling much better, she has no abdominal pain whatsoever, her vital signs are unremarkable. Her inguinal hernia is palpable but completely nontender. Her entire abdomen is not tender to palpation. I discussed with patient and her caregiver that we do not see an obvious cause of her pain which is now completely resolved. Highly doubt cardiac pathology given her previously tender abdomen as well as her negative troponin and lack of chest pain or shortness of breath. Given the patient is feeling well, is tolerating p.o., I feel that she is safe for discharge. Discussed return precautions and they will return if patient has recurrence of her symptoms or any other concerning symptoms. Otherwise her follow-up with her primary care provider. Departure - Departure Disposition: 01 Home, Self Care Clinical Impression: Abdominal pain Condition: Stable Instructions: ED Abdominal Pain Unkn Cause Follow-Up: Sylvia Machuca PA-C [Primary Care Provider] - Within 1 week Comments: You were seen today for abdominal pain, but this has improved. Your labs are reassuring, and your CT scan does not show an obvious cause of your pain. If the pain comes back or you have other worse symptoms please return the emergency department, otherwise follow with your primary care provider Discharge Date/Time: 09/16/18 14:50
[2018-09-16 14:47] VITALS: BP 140/92
== END 2018-09-16 14:50 | disposition home or self-care (01) ==
LOC: EDUNIT# → ED 10:59
DX: R10.13 Epigastric pain (principal); K40.90 Unilateral inguinal hernia, without obstruction or gangrene, not specified as recurrent; F03.90 Unspecified dementia, unspecified severity, without behavioral disturbance, psychotic disturbance, mood disturbance, and anxiety; I10 Essential (primary) hypertension
CPT/HCPCS: 36415; 71045; 74177; 80053; 81003; 83605; 83690; 84484; 85025; 85610; 96360; 99283; 99284; Q9967; 81001; 87086

== ENCOUNTER 2018-12-01 17:51 | Outpatient (CLI) | payer MEDICARE, OTHER | END 2018-12-01 17:52 | disposition critical access hospital (66) | LOC: EMS 17:51 | PROVIDERS: ATTEND Surgery | DX: R53.1 Weakness (principal); R41.82 Altered mental status, unspecified; R53.83 Other fatigue | CPT/HCPCS: A0425; A0429 ==

== ENCOUNTER 2018-12-01 18:17 | Inpatient (IN) | payer MEDICARE, OTHER ==
[2018-12-01 19:26] LABS: BASOPHILS % (AUTO) 0.3 %; EOSINOPHILS % (AUTO) 0.1 %; HGB - HEMOGLOBIN 13.8 g/dL (12.0-16.0); LYMPHOCYTES # (AUTO) 0.6 10^3/uL (1.5-3.5); LYMPHOCYTES % (AUTO) 6.2 %; MEAN CORPUSCULAR HEMOGLOBIN 30.7 pg (27.0-31.0); MEAN CORPUSCULAR HGB CONC 32.3 g/dL (32.0-36.0); MEAN CORPUSCULAR VOLUME 94.9 fL (81.0-99.0); MEAN PLATELET VOLUME 9.1 fL (7.9-10.8); MONOCYTES # (AUTO) 1.5 10^3/uL (0.0-1.0); MONOCYTES % (AUTO) 16.3 %; NEUTROPHILS # (AUTO) 7.2 10^3/uL (1.5-6.6); NEUTROPHILS % (AUTO) 76.7 %; PLT - PLATELET COUNT 403 10^3/uL (130-450); RED CELL DISTRIBUTION WIDTH 13.9 % (12.0-15.0); WHITE BLOOD COUNT 9.4 x10^3/uL (4.8-10.8)
[2018-12-01 19:39] LABS: GLUCOSE, URINE (UA) NEGATIVE (NEGATIVE); KETONES,URINE (UA) NEGATIVE (NEGATIVE); LEUKOCYTE ESTERASE, URINE TRACE (NEGATIVE); NITRITE,URINE NEGATIVE (NEGATIVE); OCCULT BLOOD,URINE NEGATIVE (NEGATIVE); PROTEIN,URINE 30 mg/dL (NEGATIVE); UROBILINOGEN,URINE 0.2 (NORMAL) E.U./dL (NORMAL)
[2018-12-01 19:42] LABS: BILIRUBIN,URINE SMALL (NEGATIVE); CLARITY,URINE CLEAR (CLEAR); ICTOTEST,URINE POSITIVE
[2018-12-01 19:43] LABS: ALBUMIN 4.3 g/dL (3.2-5.5); ALBUMIN/GLOBULIN RATIO 1.5 (1.0-2.2); BILIRUBIN,TOTAL 0.9 mg/dL (0.2-1.0); CREATININE 1.4 mg/dL (0.4-1.0); TOTAL PROTEIN 7.1 g/dL (6.7-8.2)
[2018-12-01 19:44] LABS: CALCIUM 12.2 mg/dL (8.5-10.3)
[2018-12-01] MEDS ORDERED: SODIUM CHLORIDE 0.9% 1,000 ML IV ONE (19:44)
[2018-12-01] MEDS ORDERED: FUROSEMIDE 40 MG/4 ML VIAL IVP STA (19:45)
[2018-12-01 20:01] LABS: BACTERIA,URINE Rare /HPF (None Seen); CASTS, URINE 11-25 Hyaline Casts /LPF; MUCUS,URINE Few Strands; RBC,URINE 0-5 /HPF (0-5); SQUAMOUS EPITHELIAL CELL,UR NONE SEEN (<= Few)
[2018-12-01] MEDS ORDERED: IOVERSOL 320 100 ML VIAL IVP ONE ×2 (20:11→21:21)
[2018-12-01] MEDS ORDERED: LIDOCAINE TOPICAL 4% 50 ML BOTTLE MM STA (20:39)
--- NOTE | 2018-12-01 20:52 | ED Physician Documentation ---
History of Present Illness - Stated complaint Stated Complaint: VOMITING - Chief complaint Chief Complaint: General - History obtained from History obtained from: Patient, Family, EMS - History of Present Illness Timing: How many days ago (3) Pain level max: 0 Pain level now: 0 - Additonal information Additional information: EMS states that she vomited once 3 days ago. Has been refusing medication for the past 3 days. Brought in for evaluation. She has severe dementia and is unable to give any history. 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, Hysterectomy HEENT: Cataracts - Present Medications Home Medications: Ambulatory Orders Medication Instructions Recorded Confirmed Cholecalciferol (Vitamin D3) 2,000 unit PO DAILY 12/31/12 09/16/18 [Vitamin D-3] Multivitamin/Iron/Folic Acid 1 each PO DAILY 12/31/12 09/16/18 [Centrum Complete Multivit Tab] Sulfasalazine [Sulfazine] 1,000 mg PO BID 12/31/12 09/16/18 Donepezil HCl [Aricept] 10 mg ORAL DAILY 12/08/15 09/16/18 Amlodipine Besylate [Norvasc] 2.5 mg PO DAILY 01/09/17 09/16/18 Metoclopramide [Reglan] 5 mg ACHS 07/26/18 09/16/18 Quetiapine Fumarate 25 mg PO BID 07/26/18 09/16/18 Sertraline [Zoloft] 25 mg PO DAILY 12/01/18 12/01/18 - Allergies Allergies/Adverse Reactions: Allergies Allergy/AdvReac Type Severity Reaction Status Date / Time etanercept [From Enbrel] Allergy Unknown Verified 12/01/18 18:28 - Social History Does the pt smoke?: No Smoking Status: Never smoker Does the pt drink ETOH?: Yes Does the pt have substance abuse?: No - Immunizations Immunizations are current?: Yes - POLST Patient has POLST: No PD ED PE NORMAL - Vitals Vital signs reviewed: Yes - General General: No acute distress, Well developed/nourished - HEENT HEENT: Moist mucous membranes, Pharynx benign - Neck Neck: Supple, no meningeal sign - Cardiac Cardiac: RRR - Respiratory Respiratory: No respiratory distress, Clear bilaterally - Abdomen Abdomen: Other (distended, firm, diffusely TTP) - Female Female : Other (incarcerated R inguinal hernia) - Derm Derm: Warm and dry - Extremities Extremities: No edema, No calf tenderness / cord - Neuro Neuro: Other (alert) Results - Vitals Vitals: Vital Signs - 24 hr 12/01/18 12/01/18 12/01/18 18:25 18:27 19:34 Temperature 36.5 C Heart Rate 104 H 106 H 108 H Respiratory 20 17 22 Rate Blood Pressure 157/85 H 151/89 H O2 Saturation 99 97 99 12/01/18 12/01/18 21:00 21:30 Temperature Heart Rate 108 H 121 H Respiratory 27 H 23 Rate Blood Pressure 154/81 H O2 Saturation 98 97 Oxygen O2 Source Room air - Labs Labs: Laboratory Tests 12/01/18 12/01/18 12/01/18 19:20 19:20 19:25 WBC 9.4 RBC 4.50 Hgb 13.8 Hct 42.7 MCV 94.9 MCH 30.7 MCHC 32.3 RDW 13.9 Plt Count 403 MPV 9.1 Neut # (Auto) 7.2 H Lymph # (Auto) 0.6 L [place] # (Auto) 1.5 H Eos # (Auto) 0.0 Baso # (Auto) 0.0 Absolute Nucleated RBC 0.00 Nucleated RBC % 0.0 Sodium 145 Potassium 3.9 Chloride 105 Carbon Dioxide 26 Anion Gap 14.0 H BUN 54 H Creatinine 1.4 H Estimated GFR (MDRD) 36 L Glucose 157 H Calcium 12.2 H* Total Bilirubin 0.9 AST 19 ALT 22 Alkaline Phosphatase 63 Total Protein 7.1 Albumin 4.3 Globulin 2.8 Albumin/Globulin Ratio 1.5 Lipase 51 Urine Color YELLOW Urine Clarity CLEAR Urine pH 5.0 Ur Specific [place] >=1.030 H Urine Protein 30 H Urine Glucose (UA) NEGATIVE Urine Ketones NEGATIVE Urine Occult Blood NEGATIVE Urine Nitrite NEGATIVE Urine Bilirubin SMALL H Urine Urobilinogen 0.2 (NORMAL) Ur Leukocyte Esterase TRACE H Urine RBC 0-5 Urine WBC 4-5 Ur Squamous Epith Cells NONE SEEN Urine Bacteria Rare Urine Casts 11-25 Hyaline Casts Urine Mucus Few Strands Ur Microscopic Review INDICATED Urine Culture Comments INDICATED - Rads (name of study) CT abd/pelvis Radiology: Prelim report reviewed, EMP read contemporaneously, See rad report (incarcerated R inguinal hernia causing bowel obstruction) PD MEDICAL DECISION MAKING - ED course Complexity details: reviewed results, re-evaluated patient, considered differential, d/w family, d/w risk control consultant ED course: 78-year-old female presents the emergency department and is found to have an incarcerated right inguinal hernia with bowel obstruction. NG tube was placed. Hernia is unable to be manually reduced. Discussed the case with Dr. Craig, general surgery will take her to the OR. This document was made in part using voice recognition software. While efforts are made to proofread this document, sound alike and grammatical errors may occur. Departure - Departure Disposition: ED Transfer to [facility] Clinical Impression: Incarcerated right inguinal hernia Bowel obstruction Qualifiers: Intestinal obstruction type: unspecified Intestinal obstruction extent: complete Qualified Code(s): K56.601 - Complete intestinal obstruction, unspecified as to cause Condition: Stable Discharge Date/Time: 12/01/18 22:05
--- NOTE | 2018-12-01 21:31 | CONSULTATION NOTE ---
Referring Provider Name of Referring Provider:: Dr. Jose De Jesus Dueñas Consult Date: 12/01/18 Chief Complaint - Chief Complaint Chief Complaint: Bowel obstruction secondary to incarcerated right inguinal hernia (patient History of Present Illness - Admitted From Admitted From:: [facility]'s emergency department room 5 - History Obtained From Records Reviewed: Yes History obtained from: Primarily chart and Dr. Jose De Jesus Dueñas Exam Limitations: Patient is densely demented and cannot answer any question - History of Present Illness HPI Comment/Other: Review of the chart reveals a 3-day history of vomiting. Apparently the patient did not eat or take her medications as a result of the vomiting and when this did not resolve the patient was brought to the emergency department. I do not have more history as the patient is densely demented and is unable to answer any question. 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, Hysterectomy HEENT: reports: Cataracts - POLST Patient has POLST: No Meds/Allgy - Home Medications Home Medications: Ambulatory Orders Medication Instructions Recorded Confirmed Cholecalciferol (Vitamin D3) 2,000 unit PO DAILY 12/31/12 09/16/18 [Vitamin D-3] Multivitamin/Iron/Folic Acid 1 each PO DAILY 12/31/12 09/16/18 [Centrum Complete Multivit Tab] Sulfasalazine [Sulfazine] 1,000 mg PO BID 12/31/12 09/16/18 Donepezil HCl [Aricept] 10 mg ORAL DAILY 12/08/15 09/16/18 Amlodipine Besylate [Norvasc] 2.5 mg PO DAILY 01/09/17 09/16/18 Metoclopramide [Reglan] 5 mg ACHS 07/26/18 09/16/18 Quetiapine Fumarate 25 mg PO BID 07/26/18 09/16/18 Sertraline [Zoloft] 25 mg PO DAILY 12/01/18 12/01/18 - Allergies Allergies/Adverse Reactions: Allergies Allergy/AdvReac Type Severity Reaction Status Date / Time etanercept [From Enbrel] Allergy Unknown Verified 12/01/18 18:28 Review of Systems - Constitutional Constitutional: reports: Other (Again, the patient is densely demented and cannot answer any questions.) Exam - Vital Signs Reviewed Vital Signs: Yes Vital Signs: Vital Signs x48h Temp Pulse Resp BP Pulse Ox 12/01/18 19:34 108 H 22 151/89 H 99 12/01/18 18:27 106 H 17 97 12/01/18 18:25 36.5 C 104 H 20 157/85 H 99 - Physical Exam General Appearance: positive: Mild distress (Looking around without true cognition.) Eyes Bilateral: positive: No lid inflammation, Conjunctivae nml, No scleral icterus ENT: positive: Dry mucous membranes Neck: positive: Trachea midline Respiratory: positive: Chest non-tender Cardiovascular: positive: Regular rate & rhythm, Tachycardia Abdomen: positive: Other (Profoundly distended with decreased bowel sounds.) Skin: positive: Color nml, Warm Extremities: positive: Non-tender, Nml appearance Neurologic/Psychiatric: positive: Disoriented to person, Disoriented to place, Disoriented to time Conclusion/Plan - Diagnosis Diagnosis: Complete bowel obstruction secondary to incarcerated right inguinal hernia in a densely demented 78-year-old female with no clear DNR status - Plan Plan: Emergent operation for reduction of this incarcerated right inguinal hernia, and if the bowel is severely compromised possible bowel resection, possible ileostomy or colostomy. The indications, procedure, alternatives including no operation, and possible complications including but not limited to infection, bleeding requiring transfusion with all of its risks, and were fully explained to the patient's daughter and informed consent was obtained. The abram lyn states that she is estranged from her mom but she is sure that surgery is the correct therapeutic approach. She is hoping to get in touch with her daughter for further confirmation of this. I explained to the patient's daughter that her prognosis will be dependent on what is found surgically. The patient in preparation for surgery will have an NG tube placed for her extremely dilated stomach. In addition she will have teds and Venodyne's placed for prophylax against deep venous thrombosis. Antibiotics will also be given for prophylaxis against surgical infection. At the time of the patient's admission, I certify that it was my opinion that the patient would be able to go home in 96 hours or I would make a good piedad effort to transfer the patient. Eliot disclaimer: This document was created in part using voice recognition technology. Because of the inherent limitations of the system ([employer] D[employer] user manual states that the licensee understands that speech recognition is a statistical process and that recognition errors are inherent in the process), occasional same sounding word substitutions and grammatical errors do occur and persist despite proofreading. Please read this document for context. - Lab Results Fish Bones: 12/01/18 19:20 12/01/18 19:20 - Diagnostic Imaging Results Diagnostic Imaging Results: positive: Final report reviewed, Read independently
--- NOTE | 2018-12-01 21:37 | ANESTHESIA ---
Pre-Anesthesia VS, & Labs - Diagnosis incarcerated inguinal hernia @L - Procedure Inguinal hernia reduction/repair Vital Signs: Temp Pulse Resp BP Pulse Ox 36.5 C 108 H 22 151/89 H 99 12/01/18 18:25 12/01/18 19:34 12/01/18 19:34 12/01/18 19:34 12/01/18 19:34 Height 5 ft 2 in Weight (kg) 72.575 kg Body Mass Index 29.2 - NPO Other (NGT in place) Last Food Intake: full stomach per CT - Is Patient ?: No - Lab Results Current Lab Results: Laboratory Tests 12/01/18 19:20: Sodium 145, Potassium 3.9, Chloride 105, Carbon Dioxide 26, Anion Gap 14.0 H, BUN 54 H, Creatinine 1.4 H, Estimated GFR (MDRD) 36 L, Glucose 157 H, Calcium 12.2 H*, Total Bilirubin 0.9, AST 19, ALT 22, Alkaline Phosphatase 63, Total Protein 7.1, Albumin 4.3, Globulin 2.8, Albumin/Globulin Ratio 1.5, Lipase 51 12/01/18 19:20: WBC 9.4, RBC 4.50, Hgb 13.8, Hct 42.7, MCV 94.9, MCH 30.7, MCHC 32.3, RDW 13.9, Plt Count 403, MPV 9.1, Neut # (Auto) 7.2 H, Lymph # (Auto) 0.6 L, Banner # (Auto) 1.5 H, Eos # (Auto) 0.0, Baso # (Auto) 0.0, Absolute Nucleated RBC 0.00, Nucleated RBC % 0.0 Lab results reviewed: Yes Fish Bones: 12/01/18 19:20 12/01/18 19:20 Home Medications and Allergies Home Medications: Ambulatory Orders Sertraline [Zoloft] 25 mg PO DAILY 12/01/18 Cholecalciferol (Vitamin D3) [Vitamin D-3] 2,000 unit PO DAILY 12/31/12 Multivitamin/Iron/Folic Acid [Centrum Complete Multivit Tab] 1 each PO DAILY 12/31/12 Sulfasalazine [Sulfazine] 1,000 mg PO BID 12/31/12 Donepezil HCl [Aricept] 10 mg ORAL DAILY 10/25/16 Amlodipine Besylate [Norvasc] 2.5 mg PO DAILY 01/09/17 Metoclopramide [Reglan] 5 mg ACHS 07/26/18 Quetiapine Fumarate 25 mg PO BID 07/26/18 Sertraline [Zoloft] 25 mg PO DAILY 12/01/18 Allergies/Adverse Reactions: Allergies Allergy/AdvReac Type Severity Reaction Status Date / Time etanercept [From Enbrel] Allergy Unknown Verified 12/01/18 18:28 Anes History & Medical History - Anesthetic History Anesthesia Complications: reports: No previous complications - Medical History Cardiovascular: reports: Hypertension Pulmonary: reports: Shortness of breath Gastrointestinal: reports: GERD, Hiatal hernia, Colon polyps Musculoskeletal: reports: Osteoarthritis, Rheumatoid arthritis Blood Disorders: reports: Anemia Skin: reports: Psoriasis, Rosacea Smoking Status: Never smoker - Surgical History General: Colonoscopy, EGD Eyes Ears Nose Throat (EENT): Cataracts Gynecologic: section, Hysterectomy Results - EKG Results EKG Comparison: Reviewed EKG (ST minimal ST changes) Exam General: Mild distress, Other (demented) Dental: Other (unable to assess, appears edentulous) Mouth Openin Fingerbreadth Neck Mobility: Reduced Mallampati classification: III Thyromental Distance: 4-6 cm Respiratory: Decreased breath sounds Cardiovascular: Regular rate (tachy) Mental/Cognitive Status: Confused Cognitive Status: Dementia Plan Anesthesia Type: General Consent for Procedure(s) Verified and Reviewed: Yes Code Status: Attempt Resuscitation ASA classification: 3-Severe systemic disease Is this case an emergency?: Yes
--- NOTE | 2018-12-01 21:40 | CT Report ---
Reason: abd pain, vomiting Procedure Date: 12/01/2018 Accession Number: [id number] / [id number] Procedure: CT - Abdomen/Pelvis W CPT Code: FULL RESULT: EXAM: CT ABDOMEN AND PELVIS EXAM DATE: 12/01/2018 08:32 PM. CLINICAL HISTORY: Abd pain, vomiting. COMPARISONS: ABDOMEN/PELVIS W/ 09/16/2018 12:11 PM. TECHNIQUE: Routine helical CT imaging was performed through the abdomen and pelvis. IV contrast: OPTI 320 80ML. Enteric contrast: No. Reconstructions: Coronal and sagittal. In accordance with CT protocol optimization, one or more of the following dose reduction techniques were utilized for this exam: automated exposure control, adjustment of mA and/or KV based on patient size, or use of iterative reconstructive technique. FINDINGS: Lung Bases: Unremarkable. Liver: Normal. No masses. Gallbladder/Bile Ducts: Dependent high density stones or sludge. No wall thickening or pericholecystic fluid. Spleen: Normal. Pancreas: Normal. Adrenal Glands: Normal. Kidneys: Normal. No masses or hydronephrosis. Peritoneal Cavity/Bowel: There is a markedly distended stomach, and dilated small bowel measuring up to 4.1 cm in diameter, down to the mid- small bowel where there is a segment of small bowel in a previously seen large right inguinal hernia which also contains fat. There is now increased attenuation in the fat, with thickening of the peritoneum likely related to incarceration. Distal small bowel is collapsed. Colon is collapsed. There is no free air or free fluid. Appendix is not identified. Some scattered diverticulosis is again seen. Pelvic Organs: Uterus is absent. Bladder is unremarkable. Vasculature: Atherosclerotic vascular calcifications throughout the abdominal aorta and branches, including some bulky calcified plaque protruding into the lumen. No aneurysm. Bones: No significant abnormality. Other: None. IMPRESSION: Incarcerated right inguinal hernia which contains segment of small bowel and significant proximal dilatation compatible with complete obstruction. No free air or free fluid. Other findings are unchanged compared to 09/16/2018. RADIA The above call report findings were discussed with Tiago Lopez by Dr. Gustabo Lambert at 09:32 PM on 12/01/2018. Dr. Lopez reports she is being transported to the operating room at this time.
[2018-12-01] MEDS ORDERED: CEFAZOLIN SODIUM IN 0.9 % NACL 2 GM/100 ML BAG IV ONE (21:45)
[2018-12-01] MEDS ORDERED: BUPIVACAINE 0.5% PF 30 ML VIAL ONE (21:48)
[2018-12-01] MEDS ORDERED: LACTATED RINGERS 1,000 ML IV ONE ×2 (22:06→22:20)
--- NOTE | 2018-12-01 22:27 | CT Report ---
Reason: chest wall pain, hypercalcemia Procedure Date: 12/01/2018 Accession Number: [id number] / [id number] Procedure: CT - CHEST W CPT Code: FULL RESULT: EXAM: CT CHEST EXAM DATE: 12/01/2018 09:12 PM. CLINICAL HISTORY: Chest wall pain, hypercalcemia. COMPARISONS: CHEST ANGIO 12/08/2015 2:38 PM. TECHNIQUE: Routine helical CT imaging was performed through the chest. IV contrast: Optiray 320, 80 cc. Reconstructions: Coronal and sagittal. Exam was performed in conjunction with a CT of the abdomen and pelvis. In accordance with CT protocol optimization, one or more of the following dose reduction techniques were utilized for this exam: automated exposure control, adjustment of mA and/or KV based on patient size, or use of iterative reconstructive technique. FINDINGS: Lungs/Pleura: Mild to moderate diffuse centrilobular emphysema. Some atelectasis in the anterior left lower lobe. No effusions. No pneumothoraces. Mediastinum: Hypodensities in the right lobe of the thyroid are unchanged compared to the prior study. Trace pericardial fluid may be physiologic. Coronary artery calcifications are present. No cardiac enlargement. No enlarged mediastinal lymph nodes. Thoracic aorta is normal in caliber, with vascular calcifications, particularly at the left subclavian artery origin. This was seen previously, and the left subclavian artery may be occluded at the origin. Bones: Focal sclerotic density in the posterior superior T1 vertebral body is not significantly changed. No acute bony abnormality. Visualized Abdomen: See separate report CT abdomen pelvis, describing small bowel obstruction. Other: None. IMPRESSION: Some left lower lobe atelectasis, otherwise stable CT of the chest when compared to the prior, 12/08/2015. RADIA
[2018-12-01] MEDS ORDERED: BUPIVACAINE 0.5% PF 30 ML VIAL SUBQ ONE (23:10)
[2018-12-01] MEDS ORDERED: ONDANSETRON 4 MG/2 ML VIAL IVP PRN (23:19)
[2018-12-01] MEDS ORDERED: SODIUM CHLORIDE FLUSH 0.9% 10 ML SYRINGE IVP PRN (23:19)
--- NOTE | 2018-12-01 23:30 | OPERATIVE REPORT ---
Operative Report - General Procedure Date: 12/01/18 Planned Procedure: Repair incarcerated right inguinal hernia, possible bowel resection, possible colostomy, possible ileostomy Pre-Op Diagnosis: Incarcerated right inguinal hernia resulting in bowel obstruction Procedure Performed: Repair incarcerated right femoral hernia with reduction and resection of hernia contents (omentum) Post Op Diagnosis: Incarcerated right femoral hernia - Procedure Note Primary Surgeon: Juan Craig MD Anesthesia Provider: Ramesh Gillespie CRNA Anesthesia Technique: General ET tube, Local (30 mL of half percent Marcaine) IV Fluids (mL): 600 Estimated Blood Loss (mL): 5 Drain/Tube Type: Other (None.) Complications: None. - Other Other Information/Narrative: OPERATIVE DESCRIPTION/REPORT: After verbal and written informed consent was obtained detailing the risks of infection, bleeding requiring transfusion with its risks, nerve injury, and , and after I met with the patient confirming the surgery and the site of the surgery and after initialing the site of the surgery with a surgical marker, the patient was brought to the operative suite and placed supine on the operating table. Great care was taken to avoid pressure points to prevent pressure necrosis or nerve injury. Monitoring devices were applied along with TEDs and pneumatic compressive stockings (to prevent DVT). The patient received preoperative antibiotics for surgical prophylaxis. Ramesh Gillespie CRNA sedated and ane sthetized the patient for the entire procedure. The patient was prepped and draped in the usual sterile manner. With the patient draped my initials were clearly visible. A "time in" then confirmed that the patient was identified with 3 identifiers (name, date and medical record number), the history and physical was in the chart, the signed consent confirming the procedure was in the chart, the patient was in the correct position, the aforementioned prophylactic measures were in place or given, we had the correct personnel and equipment to complete the procedure and that anesthesia, surgery and nursing were given an opportunity to express any concerns. With the agreement of everyone in the room, we proceeded with the operation. A large inguinal incision was made overlying the very hard 7 x 8 cm mass in the patient's right inguinal region and dissection down to the hernia sac was co mpleted using a combination of Metzenbaum scissors as well as Bovie electrocautery. Hemostasis was obtained using Bovie electrocautery. Examination revealed that this hernia was coming from the femoral space and not from the inguinal canal. It was clear that there was no way to reduce this hernia without opening the sac and increasing the size of the neck. I incised the inguinal fascia superiorly in order to increase the size of the neck and then he used this opening to double back into the hernia sac using a right angle to open the sac anteriorly using Bovie electrocautery. Within the sac was some fluid and some dusky omentum with some venous congestion. There was no bowel present in the hernia sac. There were adhesions of the omentum to the sac and these were taken down using Bovie electrocautery. The bulky dusky omentum was resected using serial application of the LigaSure. No bleeding was noted. The stump was then replaced into the abdomen without any difficulty. The sac was resected using serial application of the LigaSure and the stump was closed using a 0 Prolene suture ligature. The stump was then inverted back into the abdomen and the defect closed using an extra-large Bard mesh PerFix plug (reference #[id number], lot number [id number], use by date 2023-07-11). This was secured to the inguinal fascia superiorly running inferiorly to close the entire space. Meticulous hemostasis was noted. The wound was irrigated using warm sterile saline. The subcutaneous tissues were approximated using a 3-0 Vicryl in a running fashion. The skin incision was approximated with 4-0 Monocryl in a subcuticular fashion. The skin was cleaned of its prep and Dermabond was applied. A silver impregnated dressing was then applied. At this point a time out was performed that confirmed that all the counts were correct, the procedure that was performed, the blood loss, the IV fluids administered, and the patients condition. Having tolerated the procedure well, the patient was subsequently extubated and taken to recovery room in good and stable condition. Circular disclaimer: This document was created in part using voice recognition technology. Because of the inherent limitations of the system ([employer]'s [employer]ular [employer] user manual states that the licensee understands that speech recognition is a statistical process and that recognition errors are inherent in the process), occasional same sounding word substitutions and grammatical errors do occur and persist despite proofreading. Please read this document for context.
[2018-12-02] MEDS ORDERED: METOPROLOL 5 MG/5 ML VIAL IVP PRN (00:13)
[2018-12-02] MEDS ORDERED: HYDROmorphone 0.5 MG/0.5 ML SYRINGE IVP PRN (00:28)
[2018-12-02] MEDS: SODIUM CHLORIDE 0.9% 1,000 ML IV SCH ×5 (01:00→22:46)
[2018-12-02] MEDS: ACETAMINOPHEN 1,000 MG/100 ML 100 ML IV SCH ×5 (01:01→23:48)
[2018-12-02] MEDS: SODIUM CHLORIDE FLUSH 0.9% 10 ML SYRINGE IVP SCH ×3 (01:09→15:56)
--- NOTE | 2018-12-02 01:30 | XRAY Report ---
Reason: ng tube placemnt Procedure Date: 12/02/2018 Accession Number: [id number] / [id number] Procedure: XR - Abdomen 1 View X-Ray CPT Code: 55649 FULL RESULT: EXAM: ABDOMEN RADIOGRAPHY EXAM DATE: 12/02/2018 01:26 AM. CLINICAL HISTORY: NG tube placement. COMPARISON: ABDOMEN/PELVIS W/ 12/01/2018 8:32 PM. TECHNIQUE: 1 view. FINDINGS IMPRESSION: 1. Orogastric tube tip projects over the midportion of the stomach. The sidehole projects at the level of the gastroesophageal junction. Recommend advancement of 5-10 cm. 2. Dilated loops of small bowel are again seen. RADIA
[2018-12-02] MEDS ORDERED: WATER FOR INJECTION,STERILE 10 ML ONE (01:35)
[2018-12-02] MEDS ORDERED: ceFAZolin 2 GM in SODIUM CHLORIDE 0.9% 100ML 100 ML IV SCH (02:00)
[2018-12-02 05:47] LABS: BASOPHILS % (AUTO) 0.4 %; EOSINOPHILS % (AUTO) 0.1 %; HGB - HEMOGLOBIN 11.5 g/dL (12.0-16.0); LYMPHOCYTES # (AUTO) 0.6 10^3/uL (1.5-3.5); LYMPHOCYTES % (AUTO) 8.1 %; MEAN CORPUSCULAR HEMOGLOBIN 30.2 pg (27.0-31.0); MEAN CORPUSCULAR HGB CONC 32.1 g/dL (32.0-36.0); MONOCYTES # (AUTO) 1.1 10^3/uL (0.0-1.0); MONOCYTES % (AUTO) 15.2 %; NEUTROPHILS # (AUTO) 5.4 10^3/uL (1.5-6.6); NEUTROPHILS % (AUTO) 75.8 %; PLT - PLATELET COUNT 331 10^3/uL (130-450); RED BLOOD COUNT 3.81 10^6/uL (4.20-5.40); RED CELL DISTRIBUTION WIDTH 14.1 % (12.0-15.0); WHITE BLOOD COUNT 7.2 x10^3/uL (4.8-10.8)
[2018-12-02 05:59] LABS: ALBUMIN 3.3 g/dL (3.2-5.5); ALBUMIN/GLOBULIN RATIO 1.4 (1.0-2.2); BILIRUBIN,TOTAL 0.6 mg/dL (0.2-1.0); CREATININE 1.2 mg/dL (0.4-1.0); TOTAL PROTEIN 5.7 g/dL (6.7-8.2)
[2018-12-02 06:36] LABS: VBG PH 7.444 (7.31-7.41)
--- NOTE | 2018-12-02 14:26 | PROVIDER PROGRESS NOTE ---
Subjective - General Admit Date: 12/01/18 Procedure Date: 12/01/18 Post Op Days: 1 Procedure Performed: Incarcerated right femoral herniorrhaphy with mesh - Review of Systems Wound/Incisions: positive: Dressing dry and intact General: positive: No symptoms, Other (Please note this extraordinarily difficult to evaluate distention as she is densely demented but she clearly looks to be in better spirits today than she was yesterday. Is very difficult to determine whether or not she has any "symptoms" noted below because of her dementia.) HEENT: positive: No symptoms Pulmonary: positive: No symptoms Cardiovascular: positive: No symptoms Gastrointestinal: positive: No symptoms Musculoskeletal: positive: No symptoms Skin: positive: No symptoms Objective - Patient Data Reviewed Vital Signs: Yes Vital Signs: Vital Signs x48h Temp Pulse Resp BP BP Pulse Ox 12/02/18 11:41 37.1 C 102 H 17 139/58 H 95 12/02/18 07:49 37.0 C 111 H 16 112/59 L 92 Weight: Weight 11/30/18 12/01/18 12/02/18 23:59 23:59 23:59 Weight (kg) 72.575 kg 60 kg Intake & Output: Intake and Output Totals x24h 11/30/18 12/01/18 12/02/18 23:59 23:59 23:59 Intake Total 582.75 1435 Output Total 400 Balance 582.75 1035 - Lab Results Lab Results: 12/02/18 05:30 12/02/18 05:30 Other Lab Results: Lab Results x24hrs 12/02/18 12/02/18 12/02/18 Range/Units 06:30 05:30 05:30 WBC 7.2 (4.8-10.8) x10^3/uL RBC 3.81 L (4.20-5.40) 10^6/uL Hgb 11.5 L (12.0-16.0) g/dL Hct 35.8 L (37.0-47.0) % MCV 94.0 (81.0-99.0) fL MCH 30.2 (27.0-31.0) pg MCHC 32.1 (32.0-36.0) g/dL RDW 14.1 (12.0-15.0) % Plt Count 331 (130-450) 10^3/uL MPV 9.0 (7.9-10.8) fL Neut # (Auto) 5.4 (1.5-6.6) 10^3/uL Lymph # (Auto) 0.6 L (1.5-3.5) 10^3/uL [place] # (Auto) 1.1 H (0.0-1.0) 10^3/uL Eos # (Auto) 0.0 (0.0-0.7) 10^3/uL Baso # (Auto) 0.0 (0.0-0.1) 10^3/uL Absolute Nucleated RBC 0.00 x10^3/uL Nucleated RBC % 0.0 /100WBC VBG pH 7.444 H (7.31-7.41) Ionized Calcium 1.32 (1.15-1.33) mmol/L Sodium 143 (135-145) mmol/L Potassium 3.4 L (3.5-5.0) mmol/L Chloride 105 (101-111) mmol/L Carbon Dioxide 29 (21-32) mmol/L Anion Gap 9.0 (6-13) BUN 45 H (6-20) mg/dL Creatinine 1.2 H (0.4-1.0) mg/dL Estimated GFR (MDRD) 43 L (>89) Glucose 122 H (70-100) mg/dL Lactic Acid (0.5-2.2) mmol/L Calcium 10.0 (8.5-10.3) mg/dL Total Bilirubin 0.6 (0.2-1.0) mg/dL AST 16 (10-42) IU/L ALT 17 (10-60) IU/L Alkaline Phosphatase 52 (42-121) IU/L Total Protein 5.7 L (6.7-8.2) g/dL Albumin 3.3 (3.2-5.5) g/dL Globulin 2.4 (2.1-4.2) g/dL Albumin/Globulin Ratio 1.4 (1.0-2.2) Lipase (22-51) U/L Urine Color Urine Clarity (CLEAR) Urine pH (5.0-7.5) PH Ur Specific [place] (1.002-1.030) Urine Protein (NEGATIVE) mg/dL Urine Glucose (UA) (NEGATIVE) mg/dL Urine Ketones (NEGATIVE) mg/dL Urine Occult Blood (NEGATIVE) Urine Nitrite (NEGATIVE) Urine Bilirubin (NEGATIVE) Urine Urobilinogen (NORMAL) E.U./dL Ur Leukocyte Esterase (NEGATIVE) Urine RBC (0-5) /HPF Urine WBC (0-5) /HPF Ur Squamous Epith Cells (<= Few) Urine Bacteria (None Seen) /HPF Urine Casts /LPF Urine Mucus Ur Microscopic Review Urine Culture Comments 12/02/18 12/01/18 12/01/18 Range/Units 05:30 19:25 19:20 WBC (4.8-10.8) x10^3/uL RBC (4.20-5.40) 10^6/uL Hgb (12.0-16.0) g/dL Hct (37.0-47.0) % MCV (81.0-99.0) fL MCH (27.0-31.0) pg MCHC (32.0-36.0) g/dL RDW (12.0-15.0) % Plt Count (130-450) 10^3/uL MPV (7.9-10.8) fL Neut # (Auto) (1.5-6.6) 10^3/uL Lymph # (Auto) (1.5-3.5) 10^3/uL [place] # (Auto) (0.0-1.0) 10^3/uL Eos # (Auto) (0.0-0.7) 10^3/uL Baso # (Auto) (0.0-0.1) 10^3/uL Absolute Nucleated RBC x10^3/uL Nucleated RBC % /100WBC VBG pH (7.31-7.41) Ionized Calcium (1.15-1.33) mmol/L Sodium 145 (135-145) mmol/L Potassium 3.9 (3.5-5.0) mmol/L Chloride 105 (101-111) mmol/L Carbon Dioxide 26 (21-32) mmol/L Anion Gap 14.0 H (6-13) BUN 54 H (6-20) mg/dL Creatinine 1.4 H (0.4-1.0) mg/dL Estimated GFR (MDRD) 36 L (>89) Glucose 157 H (70-100) mg/dL Lactic Acid 0.6 (0.5-2.2) mmol/L Calcium 12.2 H* (8.5-10.3) mg/dL Total Bilirubin 0.9 (0.2-1.0) mg/dL AST 19 (10-42) IU/L ALT 22 (10-60) IU/L Alkaline Phosphatase 63 (42-121) IU/L Total Protein 7.1 (6.7-8.2) g/dL Albumin 4.3 (3.2-5.5) g/dL Globulin 2.8 (2.1-4.2) g/dL Albumin/Globulin Ratio 1.5 (1.0-2.2) Lipase 51 (22-51) U/L Urine Color YELLOW Urine Clarity CLEAR (CLEAR) Urine pH 5.0 (5.0-7.5) PH Ur Specific [place] >=1.030 H (1.002-1.030) Urine Protein 30 H (NEGATIVE) mg/dL Urine Glucose (UA) NEGATIVE (NEGATIVE) mg/dL Urine Ketones NEGATIVE (NEGATIVE) mg/dL Urine Occult Blood NEGATIVE (NEGATIVE) Urine Nitrite NEGATIVE (NEGATIVE) Urine Bilirubin SMALL H (NEGATIVE) Urine Urobilinogen 0.2 (NORMAL) (NORMAL) E.U./dL Ur Leukocyte Esterase TRACE H (NEGATIVE) Urine RBC 0-5 (0-5) /HPF Urine WBC 4-5 (0-5) /HPF Ur Squamous Epith Cells NONE SEEN (<= Few) Urine Bacteria Rare (None Seen) /HPF Urine Casts 11-25 Hyaline Casts /LPF Urine Mucus Few Strands Ur Microscopic Review INDICATED Urine Culture Comments INDICATED 12/01/18 Range/Units 19:20 WBC 9.4 (4.8-10.8) x10^3/uL RBC 4.50 (4.20-5.40) 10^6/uL Hgb 13.8 (12.0-16.0) g/dL Hct 42.7 (37.0-47.0) % MCV 94.9 (81.0-99.0) fL MCH 30.7 (27.0-31.0) pg MCHC 32.3 (32.0-36.0) g/dL RDW 13.9 (12.0-15.0) % Plt Count 403 (130-450) 10^3/uL MPV 9.1 (7.9-10.8) fL Neut # (Auto) 7.2 H (1.5-6.6) 10^3/uL Lymph # (Auto) 0.6 L (1.5-3.5) 10^3/uL [place] # (Auto) 1.5 H (0.0-1.0) 10^3/uL Eos # (Auto) 0.0 (0.0-0.7) 10^3/uL Baso # (Auto) 0.0 (0.0-0.1) 10^3/uL Absolute Nucleated RBC 0.00 x10^3/uL Nucleated RBC % 0.0 /100WBC VBG pH (7.31-7.41) Ionized Calcium (1.15-1.33) mmol/L Sodium (135-145) mmol/L Potassium (3.5-5.0) mmol/L Chloride (101-111) mmol/L Carbon Dioxide (21-32) mmol/L Anion Gap (6-13) BUN (6-20) mg/dL Creatinine (0.4-1.0) mg/dL Estimated GFR (MDRD) (>89) Glucose (70-100) mg/dL Lactic Acid (0.5-2.2) mmol/L Calcium (8.5-10.3) mg/dL Total Bilirubin (0.2-1.0) mg/dL AST (10-42) IU/L ALT (10-60) IU/L Alkaline Phosphatase (42-121) IU/L Total Protein (6.7-8.2) g/dL Albumin (3.2-5.5) g/dL Globulin (2.1-4.2) g/dL Albumin/Globulin Ratio (1.0-2.2) Lipase (22-51) U/L Urine Color Urine Clarity (CLEAR) Urine pH (5.0-7.5) PH Ur Specific [place] (1.002-1.030) Urine Protein (NEGATIVE) mg/dL Urine Glucose (UA) (NEGATIVE) mg/dL Urine Ketones (NEGATIVE) mg/dL Urine Occult Blood (NEGATIVE) Urine Nitrite (NEGATIVE) Urine Bilirubin (NEGATIVE) Urine Urobilinogen (NORMAL) E.U./dL Ur Leukocyte Esterase (NEGATIVE) Urine RBC (0-5) /HPF Urine WBC (0-5) /HPF Ur Squamous Epith Cells (<= Few) Urine Bacteria (None Seen) /HPF Urine Casts /LPF Urine Mucus Ur Microscopic Review Urine Culture Comments - Current Medications Current Medications: Current Medications Generic Name Dose Route Start Last Admin Trade Name Han PRN Reason Stop Dose Admin Cefazolin Sodium 2 gm/ Sodium 100 mls @ 200 mls/hr 12/02/18 02:00 12/02/18 02:53 Chloride IV 12/03/18 02:29 Infused ONCE BREE Infusion Acetaminophen 100 mls @ 400 mls/hr 12/01/18 23:45 12/02/18 13:29 Ofirmev IV Infused Q6H BREE Infusion Sodium Chloride 1,000 mls @ 150 mls/hr 12/01/18 23:45 12/02/18 08:12 Normal Saline 0.9% IV 150 mls/hr .Q6H40M BREE Administration Sodium Chloride 10 ml 12/02/18 01:00 12/02/18 10:55 Normal Saline Flush 0.9% IVP Not Given 0100,0900,1700 [facility] - Physical Exam Wound/Incisions: positive: Dressing dry and intact General Appearance: positive: No acute distress Eyes Bilateral: positive: No lid inflammation, Conjunctivae nml, No scleral icterus ENT: positive: Dry mucous membranes, Other (Nasogastric tube in place.) Neck: positive: Trachea midline Respiratory: positive: Breath sounds nml Cardiovascular: positive: Regular rate & rhythm Abdomen: positive: Nml bowel sounds Skin: positive: Color nml Extremities: positive: Nml appearance Neurologic/Psychiatric: positive: Disoriented to person, Disoriented to place, Disoriented to time, Other (Again, densely demented.) ABX Reporting Has patient been on IV antibiotics over the past 48 hours?: Yes Impression/Plan - Problem List Problem List: Day 1 status post repair incarcerated right femoral hernia with mesh and excision of compromised omentum I am awaiting the return of her bowel function prior to removing the nasogastric tube and feeding her. Her stomach was impressively distended prior to placing the nasogastric tube. The family was telling me that the incision would prove to be an impediment to her going back to the home she was living in and I explained that it would not answer the incision is completely closed, glued, and there are no restrictions. The patient appears to be as pain-free as possible and once her bowel function returns there are no surgical impediments to her return wherever she is currently staying.
[2018-12-03] MEDS ORDERED: ceFAZolin 2 GM in SODIUM CHLORIDE 0.9% 100ML 100 ML IV SCH (02:00)
[2018-12-03] MEDS ORDERED: WATER FOR INJECTION,STERILE 10 ML ONE (02:19)
[2018-12-03] MEDS: SODIUM CHLORIDE FLUSH 0.9% 10 ML SYRINGE IVP SCH ×3 (03:40→17:17)
[2018-12-03] MEDS: ACETAMINOPHEN 1,000 MG/100 ML 100 ML IV SCH ×3 (05:51→19:09)
[2018-12-03] MEDS: SODIUM CHLORIDE 0.9% 1,000 ML IV SCH ×3 (07:11→21:21)
[2018-12-03] MEDS ORDERED: ePHEDrine 50 MG/ML VIAL IVP ONE (07:59)
[2018-12-03] MEDS ORDERED: NEOSTIGMINE 1 MG/1 ML 10 ML MDV IVP ONE (07:59)
[2018-12-03] MEDS ORDERED: ROCURONIUM 50 MG/5 ML VIAL IVP ONE (07:59)
[2018-12-03] MEDS ORDERED: PROPOFOL 200 MG/20 ML VIAL IVP ONE (07:59)
[2018-12-03] MEDS ORDERED: fentaNYL 100 MCG/2 ML VIAL IVP ONE (07:59)
[2018-12-04] MEDS: ACETAMINOPHEN 1,000 MG/100 ML 100 ML IV SCH ×5 (01:28→23:58)
[2018-12-04] MEDS: SODIUM CHLORIDE FLUSH 0.9% 10 ML SYRINGE IVP SCH ×3 (01:31→16:02)
[2018-12-04] MEDS: SODIUM CHLORIDE 0.9% 1,000 ML IV SCH ×3 (04:06→17:55)
--- NOTE | 2018-12-04 09:38 | PROVIDER PROGRESS NOTE ---
Subjective - General Admit Date: 12/01/18 Procedure Date: 12/01/18 Post Op Days: 3 Procedure Performed: Incarcerated right femoral herniorrhaphy with mesh - Review of Systems Wound/Incisions: positive: Dressing dry and intact General: positive: No symptoms, Other (Please note this extraordinarily difficult to evaluate distention as she is densely demented but clearly "subjectively" more interactive. Is very difficult to determine whether or not she has any "symptoms" noted below because of her dementia.) HEENT: positive: No symptoms Pulmonary: positive: No symptoms Cardiovascular: positive: No symptoms Gastrointestinal: positive: No symptoms Musculoskeletal: positive: No symptoms Skin: positive: No symptoms Objective - Patient Data Reviewed Vital Signs: Yes Vital Signs: Vital Signs x48h Temp Pulse Resp Pulse Ox 12/04/18 05:39 36.4 C L 82 16 94 Weight: Weight 12/02/18 12/03/18 12/04/18 23:59 23:59 23:59 Weight (kg) 60 kg Intake & Output: Intake and Output Totals x24h 12/02/18 12/03/18 12/04/18 23:59 23:59 23:59 Intake Total 3472.5 3400 1622.5 Output Total 800 1500 1300 Balance 2672.5 1900 322.5 - Lab Results Lab Results: 12/02/18 05:30 12/02/18 05:30 - Current Medications Current Medications: Current Medications Generic Name Dose Route Start Last Admin Trade Name Freq PRN Reason Stop Dose Admin Acetaminophen 100 mls @ 400 mls/hr 12/01/18 23:45 12/04/18 06:56 Ofirmev IV Infused Q6H BREE Infusion Sodium Chloride 1,000 mls @ 150 mls/hr 12/01/18 23:45 12/04/18 06:55 Normal Saline 0.9% IV 150 mls/hr .Q6H40M BREE Infusion Sodium Chloride 10 ml 12/02/18 01:00 12/04/18 09:11 Normal Saline Flush 0.9% IVP Not Given 0100,0900,1700 BREE Sodium Chloride 10 ml 12/01/18 23:19 12/03/18 20:09 Normal Saline Flush 0.9% IVP 10 ml PRN PRN Administration NEEDED PER PROVIDER ORDERS - Physical Exam Wound/Incisions: positive: Dressing dry and intact General Appearance: positive: No acute distress Neck: positive: Trachea midline Respiratory: positive: Chest non-tender, Breath sounds nml Cardiovascular: positive: Regular rate & rhythm Abdomen: positive: Non-tender, Nml bowel sounds ABX Reporting Has patient been on IV antibiotics over the past 48 hours?: No Impression/Plan - Problem List Problem List: Day 3 status post repair incarcerated right femoral hernia with mesh and excision of compromised omentum Patient has had return of bowel function with her passing gas and no need for NG tube for 24 hours. Started pureed-cut up diet per dietary's recommendation. Pain appears to be controlled. No sign of infection. As long as po intake improves today there are no impediments to discharge.
[2018-12-05] MEDS: SODIUM CHLORIDE 0.9% 1,000 ML IV SCH ×2 (01:19→08:34)
[2018-12-05] MEDS: SODIUM CHLORIDE FLUSH 0.9% 10 ML SYRINGE IVP SCH ×2 (01:19→08:34)
[2018-12-05] MEDS: ACETAMINOPHEN 1,000 MG/100 ML 100 ML IV SCH ×2 (06:05→11:44)
[2018-12-05] MEDS ORDERED: MAGNESIUM CITRATE 296 ML BOTTLE PO ONE (09:58)
[2018-12-05] MEDS ORDERED: POLYETHYLENE GLYCOL 3350 17 GM PACKET PO SCH (10:00)
[2018-12-05 11:42] VITALS: BP 149/78
--- NOTE | 2018-12-05 12:40 | Discharge Plan ---
"Discharge Plan for SNF / [facility] - Discharge Plan And Transition Orders Problem Reviewed?: Yes Disposition: 03 SNF DC/Xfer Condition: Stable Allergies and Adverse Reactions: Allergies Allergy/AdvReac Type Severity Reaction Status Date / Time etanercept [From Enbrel] Allergy Unknown Verified 12/01/18 18:28 Health Concerns: Admitted with incarcerated right femoral hernia causing bowel obstruction. Operated on and fixed. Plan of Treatment: Resume preoperative level of activity. Care Goals: As above. Assessment: Dense dementia precludes understanding but patient clearly improved from preoperative. Pleasant. - SNF / ASSISTED Transition Orders Admit to (Facility): [facility] Discharge Diagnosis: Incarcerated femoral hernia surgically repaired. Medicare Certification Statement: I certify that Post Hospital longterm care is medically necessary on a continuing basis for any of the conditions for which she/he is receiving care during hospitalization. Notify PCP of admission and forward orders to primary provider for signature. Other Notification Orders: Call PCP immediately if patient develops dyspnea, chest pain/tightness or edema. House Bowel Program: Yes Additional Bowel Program Orders: If no BM after 2 days, nurse may give M.O.M. 30ml PO PRN and/or ducolax Supp 1 [place] and/or CLAUDIA 250mg P.O., and/or senna 1-2 tabs PO. On day 3 nurse may give repeat above order until residents constipation is resolved. Annual Influenza Vaccine (between Oct 14 and May 13): Yes Two-step PPD per [facility] [id number] or approved exception documents: Yes Treatments & Other Orders: Daily PT is recommended. Medication Orders: PLEASE REFER TO THE DISCHARGE MEDICATION LIST. Insulin Orders?: No - Diet Type: Geriatric Texture: Dysphagia mech Liquids: Thin May have monthly special meal: Yes - Therapies | Activity Rehabilitation Potential: Maximize functional status Activity: Activity as Tolerated Weight Bearing: Full Weight Additional Instructions: Follow up with me (Juan Craig ) in 7-10 days. Follow Up: Juan Craig MD"
--- NOTE | 2018-12-05 12:49 | DISCHARGE SUMMARY ---
"Discharge Summary Admit Date: 12/01/18 Discharge Date: 12/05/18 Discharging Provider: Juan Craig MD Code Status: Attempt Resuscitation Condition at Discharge: Stable Discharge Disposition: 03 SNF DC/Xfer - DIAGNOSES Admission Diagnoses: Incarcerated RIGHT femoral hernia Discharge Diagnoses with Status of Each Condition: Incarcerated femoral hernia surgically repaired. - HPI History of Present Illness: Densely demented 78 year old [facility] resident of [facility] presented with abdominal distention and pain secondary to incarcerated RIGHT femoral hernia. Repaired urgently. Patient did well postoperatively. - CONSULTS | PROCEDURES Consultations: Me Procedures: Incarcerated RIGHT femoral herniorrhaphy with mesh - HOSPITAL COURSE Hospital Course: Uncomplicated. - ALLERGIES Allergies/Adverse Reactions: Allergies Allergy/AdvReac Type Severity Reaction Status Date / Time etanercept [From Enbrel] Allergy Unknown Verified 12/01/18 18:28 - MEDICATIONS Home Medications: Ambulatory Orders Medication Instructions Recorded Confirmed Cholecalciferol (Vitamin D3) 4,000 unit PO DAILY 12/31/12 12/02/18 [Vitamin D3] Multivitamin/Iron/Folic Acid 1 each PO DAILY 12/31/12 12/02/18 [Centrum Complete Multivit Tab] Sulfasalazine [Sulfazine] 1,000 mg PO BID 12/31/12 12/02/18 Donepezil HCl [Aricept] 10 mg ORAL DAILY 12/08/15 12/02/18 Amlodipine Besylate [Norvasc] 2.5 mg PO DAILY 01/09/17 12/02/18 Metoclopramide [Reglan] 5 mg ACHS 07/26/18 12/02/18 Quetiapine Fumarate 25 mg PO QPM 07/26/18 12/02/18 Sertraline [Zoloft] 25 mg PO DAILY 12/01/18 12/01/18 Magnesium Chloride [Slow-Mag] 71.5 mg PO BID 12/02/18 12/02/18 Vit A/Vit C/Vit E/Zinc/Copper 2 each PO BID 12/02/18 12/02/18 [Preservision Areds Softgel] - PHYSICAL EXAM AT DISCHARGE General Appearance: positive: No acute distress Eyes Bilateral: positive: No lid inflammation, Conjunctivae nml, No scleral icterus ENT: positive: No signs of dehydration Neck: positive: Trachea midline Respiratory: positive: Chest non-tender, No respiratory distress, Breath sounds nml Cardiovascular: positive: Regular rate & rhythm Abdomen: positive: Nml bowel sounds, No distention, Other (Dressing clean and dry.) Skin: positive: Color nml Extremities: positive: Nml appearance Neurologic/Psychiatric: positive: Other (Very pleasant and conversant but still densely demented.) - LABS Result Diagrams: 12/02/18 05:30 12/02/18 05:30 - QUALITY (Female Hip Fx Only) Was patient sent home on osteoporosis medication?: No - FOLLOW UP Follow Up: Kiara in 7-10 days - TIME SPENT Time Spent in Discharge (Minutes): 45"
== END 2018-12-05 14:49 | DRG 352 ==
LOC: EDUNIT# → ED 18:17 → MS2 20:50 → ED 22:05 → MS2 23:19 → UNDOADMIN 23:19 → UNDODISIN 12-05 14:49
PROVIDERS: ADMIT Surgery; ATTEND Surgery
PROC: 0YU70JZ Supplement Right Femoral Region with Synthetic Substitute, Open Approach (ICD-10-PCS; principal; 2018-12-01 21:39)
DX: K41.30 Unilateral femoral hernia, with obstruction, without gangrene, not specified as recurrent (principal); I10 Essential (primary) hypertension; F03.90 Unspecified dementia, unspecified severity, without behavioral disturbance, psychotic disturbance, mood disturbance, and anxiety; K21.9 Gastro-esophageal reflux disease without esophagitis; K44.9 Diaphragmatic hernia without obstruction or gangrene; F32.9 Major depressive disorder, single episode, unspecified; F41.9 Anxiety disorder, unspecified; M19.90 Unspecified osteoarthritis, unspecified site; M06.9 Rheumatoid arthritis, unspecified; L40.9 Psoriasis, unspecified; L71.9 Rosacea, unspecified
CPT/HCPCS: 36415; 71260; 74018; 74177; 80053; 81001; 82330; 83605; 83690; 85025; 87086; 96374; 97161; 99285; A9270; C1781; J0131; J0690; J1170; J7120; Q9967; 81003; 88302

== ENCOUNTER 2018-12-05 14:43 | Outpatient (CLI) | payer MEDICARE, OTHER | END 2018-12-05 14:44 | disposition home or self-care (01) | LOC: EMS 14:43 | PROVIDERS: ATTEND Surgery | DX: F03.90 Unspecified dementia, unspecified severity, without behavioral disturbance, psychotic disturbance, mood disturbance, and anxiety (principal); K41.30 Unilateral femoral hernia, with obstruction, without gangrene, not specified as recurrent; Z74.01 Bed confinement status | CPT/HCPCS: A0425; A0428 ==

== ENCOUNTER 2019-03-09 12:42 | Outpatient (CLI) | payer MEDICARE, OTHER | END 2019-03-09 12:43 | disposition critical access hospital (66) | LOC: EMS 12:42 | PROVIDERS: ATTEND Surgery | DX: M54.5 Low back pain (principal); W18.39XA Other fall on same level, initial encounter; Y92.099 Unspecified place in other non-institutional residence as the place of occurrence of the external cause | CPT/HCPCS: A0425; A0429 ==

== ENCOUNTER 2019-03-09 13:07 | Emergency (ER) | payer MEDICARE, OTHER ==
--- NOTE | 2019-03-09 13:20 | ED Physician Documentation ---
PD HPI Fall - Stated complaint Stated Complaint: GLF - History obtained from History obtained from: Patient, EMS - History of Present Illness Mechanism of injury: Other Fall distance: Sitting position Where injury occurred: Home Timing - onset: Today Injury(ies) location: Back Quality of pain: Pain Associated symptoms: AMS (is demented at baseline). No: LOC Worsens with: Movement, Palpation Contributing factors: No: Anticoagulated, Intoxicated Similar symptoms before: Has not had sx before Recently seen: Not recently seen - Additional information Additional information: 78-year-old female with advanced dementia was sitting down to eat lunch today in the lunchroom and her wheeled chair slid out from underneath her and she fell onto the ground. She did not have loss of consciousness and her pain has been difficult to isolate. Medics were called to the scene they palpated her and found pain in various areas that was not reproducible. The patient did not have loss of consciousness associated with a fall and she is not on blood thinners. She is brought to the hospital by ambulance with a collar in place. She is unable to provide any significant history as her short-term memory is poor. Review of Systems Unable to obtain: Dementia Constitutional: denies: Fever Eyes: denies: Decreased vision Respiratory: denies: Cough GI: denies: Vomiting : denies: Dysuria PD PAST MEDICAL HISTORY - Past Medical History Cardiovascular: Hypertension Respiratory: Shortness of breath, Other Neuro: Dementia Endocrine/Autoimmune: None GI: GERD, Hiatal hernia, Colon polyps : None Psych: Depression, Anxiety Musculoskeletal: Osteoarthritis, Rheumatoid arthritis Derm: Psoriasis, Rosacea - Past Surgical History Past Surgical History: Yes General: Colonoscopy, EGD /HEAD LIBRARIAN: section, Hysterectomy HEENT: Cataracts - Present Medications Home Medications: Ambulatory Orders Medication Instructions Recorded Confirmed Cholecalciferol (Vitamin D3) 4,000 unit PO DAILY 12/31/12 12/02/18 [Vitamin D3] Multivitamin/Iron/Folic Acid 1 each PO DAILY 12/31/12 12/02/18 [Centrum Complete Multivit Tab] Sulfasalazine [Sulfazine] 1,000 mg PO BID 12/31/12 12/02/18 Donepezil HCl [Aricept] 10 mg ORAL DAILY 12/08/15 12/02/18 Amlodipine Besylate [Norvasc] 2.5 mg PO DAILY 01/09/17 12/02/18 Metoclopramide [Reglan] 5 mg ACHS 07/26/18 12/02/18 Quetiapine Fumarate 25 mg PO QPM 07/26/18 12/02/18 Sertraline [Zoloft] 25 mg PO DAILY 12/01/18 12/01/18 Magnesium Chloride [Slow-Mag] 71.5 mg PO BID 12/02/18 12/02/18 Vit A/Vit C/Vit E/Zinc/Copper 2 each PO BID 12/02/18 12/02/18 [Preservision Areds Softgel] - Allergies Allergies/Adverse Reactions: Allergies Allergy/AdvReac Type Severity Reaction Status Date / Time etanercept [From Enbrel] Allergy Unknown Verified 12/01/18 18:28 - Social History Does the pt smoke?: No Smoking Status: Never smoker Does the pt drink ETOH?: Yes Does the pt have substance abuse?: No - Immunizations Immunizations are current?: Yes - POLST Patient has POLST: No PD ED PE NORMAL - General General: No acute distress, Well developed/nourished, Other (alert and interactive with a poor short term memory. ) - HEENT HEENT: Atraumatic, PERRL, EOMI - Neck Neck: Supple, no meningeal sign, No bony TTP - Cardiac Cardiac: RRR, No murmur - Respiratory Respiratory: No respiratory distress, Clear bilaterally - Abdomen Abdomen: Soft, Non tender - Back Back: No CVA TTP, No spinal TTP - Derm Derm: Normal color, Warm and dry, No rash - Extremities Extremities: No deformity, No tenderness to palpate, Normal ROM s pain, No edema, No calf tenderness / cord - Neuro Neuro: tariff counsel 2-12 intact, No motor deficit, No sensory deficit, Normal speech Eye Opening: Spontaneous Motor: Obeys Commands Verbal: Oriented GCS Score: 15 - Psych Psych: Normal mood, Normal affect Results - Vitals Vitals: Vital Signs - 24 hr 03/09/19 13:18 Temperature 36.3 C L Heart Rate 72 Respiratory 18 Rate Blood Pressure 143/66 H O2 Saturation 99 Oxygen O2 Source Room air PD MEDICAL DECISION MAKING - ED course Complexity details: reviewed old records, reviewed results, re-evaluated patient, considered differential, d/w patient, d/w family ED course: 78-year-old female with advanced dementia has had a fall at [place] and she does not appear to be injured on exam. The medics had a hard time finding where she was injured and brought her here to the hospital.We have reexamined her and her having difficulty finding an injured area. I thought it appropriate to check baseline laboratory studies and a urinalysis on the patient. She refused both and became adamant about refusal. We abandoned any further efforts to collect specimens. Her [id number] is at the bedside and indicates that she believes that her [id number] just needs to go back to her home. We are all in agreement. Departure - Departure Disposition: 01 Home, Self Care Clinical Impression: Accident due to mechanical fall without injury Qualifiers: Encounter type: initial encounter Qualified Code(s): W19.XXXA - Unspecified fall, initial encounter Condition: Stable Instructions: ED Mechanical Fall Follow-Up: Sylvia Machuca PA-C [Primary Care Provider] -
[2019-03-09 15:06] VITALS: BP 145/76
== END 2019-03-09 15:33 | disposition home or self-care (01) ==
LOC: EDUNIT# → ED 13:07
DX: Z04.3 Encounter for examination and observation following other accident (principal); W05.0XXA Fall from non-moving wheelchair, initial encounter; Y93.89 Activity, other specified; Y92.128 Other place in nursing home as the place of occurrence of the external cause; F03.90 Unspecified dementia, unspecified severity, without behavioral disturbance, psychotic disturbance, mood disturbance, and anxiety; I10 Essential (primary) hypertension
CPT/HCPCS: 80053; 83690; 85025; 99282; 99283

== ENCOUNTER 2019-03-30 11:41 | Outpatient (CLI) | payer MEDICARE, OTHER | END 2019-03-30 11:42 | disposition EMS.NT | LOC: EMS 11:41 | PROVIDERS: ATTEND Surgery | DX: Z03.89 Encounter for observation for other suspected diseases and conditions ruled out (principal) ==

== ENCOUNTER 2019-04-12 16:03 | Outpatient (CLI) | payer MEDICARE, OTHER | END 2019-04-12 23:59 | disposition critical access hospital (66) | LOC: EMS 16:03 | PROVIDERS: ATTEND Surgery | DX: M25.551 Pain in right hip (principal); W01.0XXA Fall on same level from slipping, tripping and stumbling without subsequent striking against object, initial encounter; Y92.098 Other place in other non-institutional residence as the place of occurrence of the external cause | CPT/HCPCS: A0425; A0429 ==

== ENCOUNTER 2019-04-12 16:31 | Emergency (ER) | payer MEDICARE, OTHER ==
--- NOTE | 2019-04-12 17:37 | CT Report ---
Reason: neck inj Procedure Date: 04/12/2019 Accession Number: [id number] / [id number] Procedure: CT - CERVICAL SPINE WO CPT Code: Final Report FULL RESULT: EXAM: CT CERVICAL SPINE WITHOUT CONTRAST DATE: 04/12/2019 05:21 PM. HISTORY: Fall. Neck injury. COMPARISONS: CERVICAL SPINE W/O 04/12/2019 5:15 PM CHEST W/ 12/01/2018 8:32 PM. TECHNIQUE: Thin-section axial images were acquired of the cervical spine without contrast. Post-processing: Coronal and sagittal reformats. Other: None. In accordance with CT protocol optimization, one or more of the following dose reduction techniques were utilized for this exam: automated exposure control, adjustment of mA and/or KV based on patient size, or use of iterative reconstructive technique. FINDINGS: Alignment: No scoliosis. Reversal of cervical lordosis in the upper cervical spine. Bones: No acute traumatic or destructive bony normality. Right laminectomy at C6. Stable density in the posterior vertebral body of T1. Interspace Levels/Facets: C1-C2: Unremarkable. C2-C3: Unremarkable. C3-C4: Moderate disk space narrowing. C4-C5: Moderate disk space narrowing. C5-C6: Mild disk space narrowing. C6-C7: Unremarkable. C7-T1: Unremarkable. Musculature: Normal. No fatty atrophy. Other: Bilateral carotid artery calcification noted. Stable metallic density in the right lateral spinal canal at C6 adjacent to the laminectomy site. The lung apices are clear. IMPRESSION: 1. No acute cervical spine abnormalities. 2. Multilevel degenerative disk disease, worst at C3-C4 and C4-C5. 3. Stable postoperative changes at C6. 4. Stable bone density in the posterior body of T1. RADIA
--- NOTE | 2019-04-12 17:41 | CT Report ---
Reason: possible head inj Procedure Date: 04/12/2019 Accession Number: [id number] / [id number] Procedure: CT - HEAD WO CPT Code: Final Report FULL RESULT: EXAM: CT HEAD EXAM DATE: 04/12/2019 05:21 PM. CLINICAL HISTORY: Fall with possible head injury COMPARISON: HEAD W/O 04/02/2014 10:20 AM BRAIN W/WO 04/17/2015 10:20 AM. TECHNIQUE: Multiaxial CT images were obtained from the foramen magnum to the vertex. Reformats: Sagittal and coronal. IV contrast: None. In accordance with CT protocol optimization, one or more of the following dose reduction techniques were utilized for this exam: automated exposure control, adjustment of mA and/or KV based on patient size, or use of iterative reconstructive technique. FINDINGS: Parenchyma: Extensive patchy white matter hypoattenuation, as before, compatible with chronic small vessel ischemic change. No intraparenchymal hemorrhage, mass effect, or CT findings of evolving acute/subacute infarct. Jimenez-white differentiation is distinct. Extraaxial Spaces: Normal for age. No subdural or epidural collections identified. Ventricles: The ventricles and basal cisterns are patent. No hydrocephalus or midline shift. Sinuses: The visualized paranasal sinuses and mastoid air cells are clear. Bones: No evidence of fracture or calvarial defect. Other: The visualized superficial soft tissues are unremarkable; no hematoma or edema is evident. Bilateral lens replacements. IMPRESSION: 1. Extensive chronic microvascular angiopathy, as before. 2. No acute intracranial abnormality. RADIA
--- NOTE | 2019-04-12 18:03 | XRAY Report ---
Reason: hip inj Procedure Date: 04/12/2019 Accession Number: [id number] / [id number] Procedure: XR - Hip w/Pelvis 2-3V RT CPT Code: Final Report FULL RESULT: EXAM: RIGHT HIP RADIOGRAPHY EXAM DATE: 04/12/2019 05:28 PM. CLINICAL HISTORY: Hip inj. COMPARISON: HIP W/PELVIS 2-3V LT 11/12/2017 2:29 PM. TECHNIQUE: 2 views. FINDINGS: On the AP view, the patient is mildly rotated toward the right. Bones: There is an acute nondisplaced oblique fracture at the junction of the right parasymphyseal pubis at iliopubic ramus. No other obturator ring or pelvic fracture is identified. No right hip fracture is identified. The right femoral neck is not optimally profiled on the AP view because of rotation. Joints: Normal. No dislocation. The hip joint space is preserved. Soft Tissues: Normal. No soft tissue swelling. IMPRESSION: 1. Nondisplaced oblique fracture through the junction of the right parasymphyseal pubis and iliopubic ramus. No other pelvic fracture is identified. 2. No right hip fracture is identified. The right femoral neck is suboptimally profiled on the AP view because of rotation. RADIA
--- NOTE | 2019-04-12 18:14 | ED Physician Documentation ---
PD HPI LOWER EXT INJURY - Stated complaint Stated Complaint: R HIP PN/ FALL - Chief complaint Chief Complaint: Ext Problem - History obtained from History obtained from: Patient, Family (sister), EMS - History of Present Illness PD HPI LOW EXT INJURY LOCATION: Right (Demented patient who lives at [facility]. Reportedly fell today, she has no complaints but is fairly demented. 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, Hysterectomy HEENT: Cataracts - Present Medications Home Medications: Ambulatory Orders Medication Instructions Recorded Confirmed Cholecalciferol (Vitamin D3) 4,000 unit PO DAILY 12/31/12 12/02/18 [Vitamin D3] Multivitamin/Iron/Folic Acid 1 each PO DAILY 12/31/12 12/02/18 [Centrum Complete Multivit Tab] Sulfasalazine [Sulfazine] 1,000 mg PO BID 12/31/12 12/02/18 Donepezil HCl [Aricept] 10 mg ORAL DAILY 12/08/15 12/02/18 Amlodipine Besylate [Norvasc] 2.5 mg PO DAILY 01/09/17 12/02/18 Metoclopramide [Reglan] 5 mg ACHS 07/26/18 12/02/18 Quetiapine Fumarate 25 mg PO QPM 07/26/18 12/02/18 Sertraline [Zoloft] 25 mg PO DAILY 12/01/18 12/01/18 Magnesium Chloride [Slow-Mag] 71.5 mg PO BID 12/02/18 12/02/18 Vit A/Vit C/Vit E/Zinc/Copper 2 each PO BID 12/02/18 12/02/18 [Preservision Areds Softgel] - Allergies Allergies/Adverse Reactions: Allergies Allergy/AdvReac Type Severity Reaction Status Date / Time etanercept [From Enbrel] Allergy Unknown Verified 12/01/18 18:28 - Social History Does the pt smoke?: No Smoking Status: Never smoker Does the pt drink ETOH?: Yes Does the pt have substance abuse?: No - Immunizations Immunizations are current?: Yes - POLST Patient has POLST: No PD ED PE NORMAL - Vitals Vital signs reviewed: Yes - General General: Other (She is alert and oriented to person only, does not remember the fall. She is occasionally belligerent with her dementia.) - HEENT HEENT: PERRL, EOMI - Neck Neck: Other (Mild tenderness of the upper cervical spine) - Cardiac Cardiac: RRR, No murmur - Respiratory Respiratory: No respiratory distress, Clear bilaterally - Abdomen Abdomen: Normal bowel sounds, Soft, Non tender - Back Back: No CVA TTP, No spinal TTP - Derm Derm: Normal color, Warm and dry - Extremities Extremities: Other (She is able to lift the right leg and the left leg off the bed without pain. Painless internal and external rotation of the right hip.) - Neuro Neuro: No motor deficit, No sensory deficit Results - Vitals Vitals: Vital Signs - 24 hr 04/12/19 04/12/19 16:35 16:49 Temperature 36.6 C Heart Rate 74 94 Respiratory 16 16 Rate Blood Pressure 121/70 121/70 O2 Saturation 98 99 Oxygen O2 Source Room air - Rads (name of study) X-ray of the right hip Radiology: EMP read contemporaneously (Nondisplaced oblique fracture through the junction of the right parasymphyseal pubis and iliopubic ramus without other pelvic or hip fracture identified.) CT of the head and cervical spine done without contrast Radiology: EMP read contemporaneously (Atrophy and white matter disease, no acute abnormalities, postoperative changes in the neck and degenerative changes in the neck.) PD MEDICAL DECISION MAKING - ED course ED course: 79-year-old woman presents from assisted living facility after fall with right hip pain. Clinically no hip fracture. She did have a pelvic fracture on x-ray. She was able to walk and bear weight with a walker here although somewhat limi krystyna and needed more assistance than is her usual. She was administered a walker. Family comfortable with discharge. Also discussed that given her dementia I would avoid narcotics and advised Tylenol for pain. Departure - Departure Disposition: 01 Home, Self Care Clinical Impression: Neck pain Fall Qualifiers: Encounter type: initial encounter Qualified Code(s): W19.XXXA - Unspecified fall, initial encounter Dementia Qualifiers: Dementia type: unspecified type Dementia behavioral disturbance: with behavioral disturbance Qualified Code(s): F03.91 - Unspecified dementia with behavioral disturbance Pubic ramus fracture Qualifiers: Encounter type: initial encounter Fracture type: closed Laterality: right Qualified Code(s): S32.591A - Other specified fracture of right pubis, initial encounter for closed fracture Condition: Good Record reviewed to determine appropriate education?: Yes Instructions: ED Dementia Caregiver Support, ED Fx Pelvis Comments: Tylenol, 650 mg every 6 hours as needed for pain. She can walk and bear weight as tolerated with a walker. She will need more assistance than normal given the pubic fracture. Follow-up with her primary care physician, next available appointment.
[2019-04-12 19:41] VITALS: BP 106/76
== END 2019-04-12 20:27 | disposition home or self-care (01) ==
LOC: EDUNIT# → ED 16:31
DX: S32.591A Other specified fracture of right pubis, initial encounter for closed fracture (principal); W18.30XA Fall on same level, unspecified, initial encounter; Y93.02 Activity, running; Y92.098 Other place in other non-institutional residence as the place of occurrence of the external cause; M50.31 Other cervical disc degeneration, high cervical region; F03.91 Unspecified dementia, unspecified severity, with behavioral disturbance; I10 Essential (primary) hypertension
CPT/HCPCS: 70450; 72125; 99281; 99284

== ENCOUNTER 2019-04-27 19:05 | Outpatient (CLI) | payer MEDICARE, OTHER | END 2019-04-27 19:06 | disposition EMS.NT | LOC: EMS 19:05 | PROVIDERS: ATTEND Surgery | DX: Z03.89 Encounter for observation for other suspected diseases and conditions ruled out (principal) ==

== ENCOUNTER 2019-07-22 19:14 | Outpatient (CLI) | payer MEDICARE, OTHER | END 2019-07-22 19:15 | disposition short-term general hospital (02) | LOC: EMS 19:14 | PROVIDERS: ATTEND Surgery | DX: S00.93XA Contusion of unspecified part of head, initial encounter (principal); W19.XXXA Unspecified fall, initial encounter; Y92.129 Unspecified place in nursing home as the place of occurrence of the external cause | CPT/HCPCS: A0425; A0429 ==

== ENCOUNTER 2019-07-28 19:25 | Outpatient (CLI) | payer MEDICARE, OTHER | END 2019-07-28 19:26 | disposition EMS.NT | LOC: EMS 19:25 | PROVIDERS: ATTEND Surgery | DX: Z03.89 Encounter for observation for other suspected diseases and conditions ruled out (principal) ==

== ENCOUNTER 2023-10-03 23:27 | Outpatient (CLI) | payer MEDICARE, OTHER, MEDICAID | END 2023-10-03 23:28 | disposition critical access hospital (66) | LOC: EMS 23:27 | DX: R41.82 Altered mental status, unspecified (principal); R11.10 Vomiting, unspecified; R50.9 Fever, unspecified | CPT/HCPCS: A0425; A0429 ==

== ENCOUNTER 2023-10-03 23:42 | Inpatient (IN) | payer MEDICARE, OTHER, MEDICAID ==
--- NOTE | 2023-10-03 23:51 | ED Physician Documentation ---
History of Present Illness - Stated complaint Stated Complaint: UNRESPONSIVE - Chief complaint Chief Complaint: General - History obtained from History obtained from: EMS - Additonal information Additional information: BIBA. HPI from EMS. Patient is obtunded and thus cannot contribute to HPI/ROS. Brought to ED from [facility]. Past medical history includes COPD, dementia (based on documentation from [facility] brought with patient to ED). Staff called 911 due to patient exhibiting altered mental status. Reportedly (per EMS report), this was just noted tonight. EMS arrived to find the patient obtunded with vomitus in and around her mouth. Pulse ox on room air was 65% but improved to 92% with 6 L/min supplemental O2. EMS also notes temperature of 102.6 [place]. Fingerstick blood sugar 148 per EMS check. EMS established a 20-gauge IV in the left hand en route. 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 HEENT: Cataracts - Present Medications Home Medications: Ambulatory Orders Medication Instructions Recorded Confirmed Cholecalciferol (Vitamin D3) 4,000 unit PO DAILY 12/31/12 10/04/23 [Vitamin D3] Sulfasalazine [Sulfazine] 1,000 mg PO BID 12/31/12 10/04/23 Donepezil HCl [Aricept] 10 mg ORAL DAILY 12/08/15 10/04/23 Metoclopramide [Reglan] 5 mg QID 07/26/18 10/04/23 Quetiapine Fumarate 50 mg PO DAILY 07/26/18 10/04/23 Sertraline [Zoloft] 50 mg PO DAILY 12/01/18 10/04/23 Acetaminophen [Acetaminophen Extra 1,000 mg PO BID 10/04/23 10/04/23 Strength] Acetaminophen [Acetaminophen Extra 1,000 mg PO BID PRN 10/04/23 10/04/23 Strength] Albuterol Sulfate [Proair 2 puffs IH Q4HR PRN 10/04/23 10/04/23 Digihaler] Docusate Sodium 100Mg Capsule 200 mg PO BID PRN 10/04/23 10/04/23 [Colace 100Mg Capsule] Risperidone [Risperdal] 1 mg PO BID 10/04/23 10/04/23 Senna [Senokot] 1 tab PO BID 10/04/23 10/04/23 Sertraline [Zoloft] 100 mg PO DAILY 10/04/23 10/04/23 polyethylene glycoL 3350 17 gm PO DAILY 10/04/23 10/04/23 [Polyethylene Glycol 3350] traZODone [Desyrel] 1 tab PO DAILY PM 10/04/23 10/04/23 - Allergies Allergies/Adverse Reactions: Allergies Allergy/AdvReac Type Severity Reaction Status Date / Time etanercept [From Enbrel] Allergy Unknown Verified 10/03/23 23:47 - Social History Does the pt smoke?: No Smoking Status: Never smoker Does the pt drink ETOH?: Yes Does the pt have substance abuse?: No - Immunizations Immunizations are current?: Yes - POLST Patient has POLST: No PD ED PE NORMAL - Vitals Vital signs reviewed: Yes - General General: Other (obtunded. occasionally moans with tactile stimulus) - HEENT HEENT: Other (parched mucous membranes) - Neck Neck: Supple, no meningeal sign - Abdomen Abdomen: Soft, Non distended - Derm Derm: Normal color - Extremities Extremities: No edema - Neuro Eye Opening: None Motor: Localizes to Pain Verbal: Incomprehensible GCS Score: 8 PD ED PE EXPANDED - Cardiac Cardiac: Tachy, Regular Rhythm - Respiratory Respiratory: Rhonchi (diffuse bilateral course rhonchi), Other (tachypneic) Results - Vitals Vitals: Vital Signs - 24 hr 10/03/23 10/04/23 10/04/23 23:47 00:03 00:30 Temperature 38.7 C H Heart Rate 140 H 135 H 113 H Respiratory 22 40 H 42 H Rate Blood Pressure 173/72 H 137/68 H 107/85 H O2 Saturation 83 L 97 97 If not protocol : Oxygen Flow, liters/minute 10/04/23 10/04/23 10/04/23 00:55 01:00 01:26 Temperature Heart Rate 107 H 114 H 105 H Respiratory 44 H 40 H 40 H Rate Blood Pressure 127/61 117/53 L O2 Saturation 98 94 If not protocol 15 : Oxygen Flow, liters/minute 10/04/23 10/04/23 02:00 02:30 Temperature 37.8 C Heart Rate 106 H 102 H Respiratory 36 H 36 H Rate Blood Pressure 102/56 L 109/57 L O2 Saturation 96 96 If not protocol : Oxygen Flow, liters/minute Oxygen O2 Source Non-rebreather mask - EKG (time done) No standard instances EKG releavant findings:: EKG personally interpreted by author of this note. Relevant findings are: Rate: Rate (enter#) (131) Rhythm: Sinus tachycardia, LAE [place]: LAD Intervals: Normal ND, QRS normal QRS: LVH Ischemia: Normal ST segments Computer interpretation: Disagree with computer (no ST depressions nor elevations) - Labs Labs: Laboratory Tests 10/03/23 10/03/23 10/03/23 23:50 23:50 23:50 WBC 8.8 RBC 3.68 L Hgb 11.1 L Hct 35.7 L MCV 97.0 MCH 30.2 MCHC 31.1 L RDW 15.7 H Plt Count 361 MPV 9.5 Neut # (Auto) 7.6 H Lymph # (Auto) 0.3 L [place] # (Auto) 0.6 Eos # (Auto) 0.1 Baso # (Auto) 0.1 Absolute Nucleated RBC 0.04 Band Neuts % (Manual) Not Reportable Abnorm Lymph % (Manual) Not Reportable Nucleated RBC % 0.5 Neutrophils # (Manual) Not Reportable Lymphocytes # (Manual) Not Reportable Monocytes # (Manual) Not Reportable Eosinophils # (Manual) Not Reportable Basophils # (Manual) Not Reportable Differential Comment MANUAL=AUTO DIFF Manual Slide Review Indicated Platelet Estimate NORMAL (130-450,000) Platelet Morphology NORMAL APPEARANCE RBC Morph Micro Appear NORMAL APPEARANCE Sodium 145 Potassium 4.1 Chloride 110 Carbon Dioxide 24 Anion Gap 11.0 BUN 53 H Creatinine 1.4 H Estimated GFR (MDRD) 36 L Glucose 168 H Lactic Acid 2.0 Calcium 10.1 Total Bilirubin 0.6 AST 15 ALT 6 L Alkaline Phosphatase 67 B-Natriuretic Peptide Total Protein 8.1 Albumin 3.5 Globulin 4.6 H Albumin/Globulin Ratio 0.8 L Urine Color Urine Clarity Urine pH Ur Specific [place] Urine Protein Urine Glucose (UA) Urine Ketones Urine Occult Blood Urine Nitrite Urine Bilirubin Urine Urobilinogen Ur Leukocyte Esterase Urine RBC Urine WBC Ur Squamous Epith Cells Amorphous Sediment Urine Bacteria Urine Culture Comments Nasal Adenovirus (PCR) Nasal B. parapertussis DNA (PCR) Nasal Coronavir 229E PCR Nasal Coronavir HKU1 PCR Nasal Coronavir NL63 PCR Nasal Coronavir OC43 PCR Nasal Enterovir/Rhinovir PCR Nasal Influenza B PCR Nasal Influenza A PCR Nasal Parainfluen 1 PCR Nasal Parainfluen 2 PCR Nasal Parainfluen 3 PCR Nasal Parainfluen 4 PCR Nasal RSV (PCR) Nasal B.pertussis DNA PCR Nasal C.pneumoniae (PCR) [place] Human Metapneumo PCR Nasal M.pneumoniae (PCR) Nasal SARS-CoV-2 (PCR) 10/03/23 10/03/23 10/04/23 23:50 23:50 00:38 WBC RBC Hgb Hct MCV MCH MCHC RDW Plt Count MPV Neut # (Auto) Lymph # (Auto) [place] # (Auto) Eos # (Auto) Baso # (Auto) Absolute Nucleated RBC Band Neuts % (Manual) Abnorm Lymph % (Manual) Nucleated RBC % Neutrophils # (Manual) Lymphocytes # (Manual) Monocytes # (Manual) Eosinophils # (Manual) Basophils # (Manual) Differential Comment Manual Slide Review Platelet Estimate Platelet Morphology RBC Morph Micro Appear Sodium Potassium Chloride Carbon Dioxide Anion Gap BUN Creatinine Estimated GFR (MDRD) Glucose Lactic Acid Calcium Total Bilirubin AST ALT Alkaline Phosphatase B-Natriuretic Peptide 208 H Total Protein Albumin Globulin Albumin/Globulin Ratio Urine Color YELLOW Urine Clarity CLOUDY Urine pH 5.5 Ur Specific [place] >=1.030 H Urine Protein 30 H Urine Glucose (UA) NEGATIVE Urine Ketones NEGATIVE Urine Occult Blood SMALL H Urine Nitrite NEGATIVE Urine Bilirubin MODERATE H Urine Urobilinogen 1 (NORMAL) Ur Leukocyte Esterase NEGATIVE Urine RBC 6-10 H Urine WBC 0-3 Ur Squamous Epith Cells MANY Squamous H Amorphous Sediment Few Urine Bacteria Many H Urine Culture Comments NOT INDICATED Nasal Adenovirus (PCR) NOT DETECTED Nasal B. parapertussis DNA (PCR) NOT DETECTED Nasal Coronavir 229E PCR NOT DETECTED Nasal Coronavir HKU1 PCR NOT DETECTED Nasal Coronavir NL63 PCR NOT DETECTED Nasal Coronavir OC43 PCR NOT DETECTED Nasal Enterovir/Rhinovir PCR NOT DETECTED Nasal Influenza B PCR NOT DETECTED Nasal Influenza A PCR NOT DETECTED Nasal Parainfluen 1 PCR NOT DETECTED Nasal Parainfluen 2 PCR NOT DETECTED Nasal Parainfluen 3 PCR NOT DETECTED Nasal Parainfluen 4 PCR NOT DETECTED Nasal RSV (PCR) NOT DETECTED Nasal B.pertussis DNA PCR NOT DETECTED Nasal C.pneumoniae (PCR) NOT DETECTED [place] Human Metapneumo PCR NOT DETECTED Nasal M.pneumoniae (PCR) NOT DETECTED Nasal SARS-CoV-2 (PCR) NOT DETECTED - Rads (name of study) chest xray Relevant Findings:: Prelim report reviewed, See rad report PD Medical Decision Making - ED course Complexity details: reviewed results, re-evaluated patient, considered differential ED course: Shortly after patient's arrival to ED, I attempted to contact Bianca Sewell who is listed as the primary contact as well as the power of attorney law clerk (healthcare) on the sheets that are brought over to this ED from [facility]. Unfortunately, Bianca Sewell did not answer the phone ( ) and I left a message urging them to contact this ED. Included in the patient's paperwork from [facility] is a POLST form which indicates DNR as well as comfort measures only. Regarding antibiotics, it indicates antibiotics may be given with comfort as the goal. ED RN contacted staff at [facility] to confirm what EMS had reported which is that staff had contacted patient's family and that said family member requested that patient undergo transfer to ED; this is relevant to this situation due to POLST form indicating DNR and comfort measures only. ED RN tells me that staff at [facility] indicate they were NOT able to contact patient's family and instead left a message. Patient is obtunded and thus I am unable to get any HPI/ROS from patient as well as unable to discuss her wishes regarding treatment. Patient is given 1 L normal saline IV, 1000 mg Ofirmev IV, and triple antibiotics per sepsis protocol (metronidazole, cefepime, vancomycin). Woody catheter was placed and urine is sent to the lab as well as 2 blood cultures along with sepsis-oriented blood work. Surprisingly, the white blood cell count and lactate levels are normal. Chest x-ray shows diffuse patchy interstitial prominence s/o pneumonic infectious process. Urinalysis result is equivocal but moderate squamous cells suggest contaminated specimen. Respiratory PCR panel is negative for the viruses tested on this panel including COVID, influenza, RSV. Patient had improvement in her heart rate as she defervesced, but her oxygen requirement persisted throughout ED stay as well as her tachypnea. I discussed this case with the [facility] hospitalist who accepts patient for admission to [facility]. Departure - Departure Disposition: [facility] DC/Xfer Clinical Impression: Sepsis Qualifiers: Sepsis type: sepsis due to unspecified organism Sepsis acute organ dysfunction status: unspecified Qualified Code(s): A41.9 - Sepsis, unspecified organism Condition: Serious
[2023-10-04 00:08] LABS: BASOPHILS # (AUTO) 0.1 10^3/uL (0.0-0.1); BASOPHILS % (AUTO) 0.9 %; EOSINOPHILS # (AUTO) 0.1 10^3/uL (0.0-0.7); HCT - HEMATOCRIT 35.7 % (37.0-47.0); HGB - HEMOGLOBIN 11.1 g/dL (12.0-16.0); LYMPHOCYTES # (AUTO) 0.3 10^3/uL (1.5-3.5); LYMPHOCYTES % (AUTO) 3.6 %; MEAN CORPUSCULAR HEMOGLOBIN 30.2 pg (27.0-31.0); MEAN CORPUSCULAR HGB CONC 31.1 g/dL (32.0-36.0); MEAN PLATELET VOLUME 9.5 fL (7.9-10.8); MONOCYTES # (AUTO) 0.6 10^3/uL (0.0-1.0); MONOCYTES % (AUTO) 6.6 %; NEUTROPHILS # (AUTO) 7.6 10^3/uL (1.5-6.6); NEUTROPHILS % (AUTO) 86.1 %; NRBC ABSOLUTE COUNT (AUTO) 0.04 x10^3/uL; NUCLEATED RED BLOOD CELLS AUTO 0.5 /100WBC; PLT - PLATELET COUNT 361 10^3/uL (130-450); RED BLOOD COUNT 3.68 10^6/uL (4.20-5.40); RED CELL DISTRIBUTION WIDTH 15.7 % (12.0-15.0); WHITE BLOOD COUNT 8.8 x10^3/uL (4.8-10.8)
[2023-10-04 00:20] LABS: SLIDE REVIEW? Indicated
[2023-10-04] MEDS: CEFEPIME 2 GM in SODIUM CHLORIDE 0.9% MINIBAG 100 ML IV STA (00:26)
[2023-10-04] MEDS: SODIUM CHLORIDE 0.9% 1,000 ML IV ONE (00:26)
[2023-10-04 00:30] LABS: ALBUMIN 3.5 g/dL (3.2-5.5); ALBUMIN/GLOBULIN RATIO 0.8 (1.0-2.2); BILIRUBIN,TOTAL 0.6 mg/dL (0.2-1.0); CALCIUM 10.1 mg/dL (8.5-10.3); CREATININE 1.4 mg/dL (0.6-1.3); POTASSIUM 4.1 mmol/L (3.5-4.5); TOTAL PROTEIN 8.1 g/dL (6.4-8.9)
--- NOTE | 2023-10-04 00:30 | XRAY Report ---
PROCEDURE: Chest 1V INDICATIONS: Sepsis TECHNIQUE: One view of the chest was acquired. COMPARISON: 12/01/2018. FINDINGS: Surgical changes and devices: None. Lungs and pleura: Diffuse patchy interstitial prominence, more pronounced within the right lung. Mediastinum: Mediastinal contours appear normal. Heart size is normal. Bones and chest wall: No suspicious bony lesions. Overlying soft tissues appear unremarkable. IMPRESSION: Diffuse patchy interstitial prominence, more pronounced within the right lung. Findings are concernin g for infection. Reviewed by: Matt Ball MD on 10/04/2023 12:28 AM PDT Approved by: Matt Ball MD on 10/04/2023 12:28 AM PDT Station ID: [id number]
[2023-10-04] MEDS: ACETAMINOPHEN 1,000 MG/100 ML 1,000 MG/100 ML BAG IV STA (00:36)
[2023-10-04] MEDS: ACETAMINOPHEN 650 MG SUPP PR STA (00:36)
[2023-10-04 00:40] LABS: DIFFERENTIAL COMMENT MANUAL=AUTO DIFF; PLATELET ESTIMATE, MANUAL NORMAL (130-450,000) (NORMAL); PLATELET MORPHOLOGY NORMAL APPEARANCE (NORMAL); RBC MORPHOLOGY (MULTIPLE) NORMAL APPEARANCE (NORMAL)
[2023-10-04] MEDS ORDERED: VANCOMYCIN 1 GM VIAL ONE (00:42)
[2023-10-04 00:43] LABS: BILIRUBIN,URINE MODERATE (NEGATIVE); GLUCOSE, URINE (UA) NEGATIVE (NEGATIVE); KETONES,URINE (UA) NEGATIVE (NEGATIVE); LEUKOCYTE ESTERASE, URINE NEGATIVE (NEGATIVE); NITRITE,URINE NEGATIVE (NEGATIVE); OCCULT BLOOD,URINE SMALL (NEGATIVE); PH,URINE 5.5 PH (5.0-7.5); PROTEIN,URINE 30 mg/dL (NEGATIVE); UROBILINOGEN,URINE 1 (NORMAL) E.U./dL (NORMAL)
[2023-10-04 00:45] LABS: CLARITY,URINE CLOUDY (CLEAR)
[2023-10-04 00:50] LABS: AMORPHOUS SEDIMENT,UR Few /LPF; BACTERIA,URINE Many /HPF (None Seen); SQUAMOUS EPITHELIAL CELL,UR MANY Squamous (<= Few); WBC,URINE 0-3 /HPF (0-5)
[2023-10-04] MEDS: ALBUTEROL NEB 2.5 MG/3 ML INH STA (00:56)
[2023-10-04] MEDS: metroNIDAZOLE 500 MG/100 ML 500 MG/100 ML BAG IV STA (00:59)
[2023-10-04] MEDS: VANCOMYCIN INJ 1 GM in SODIUM CHLORIDE 0.9% 250 ML IV STA (01:18)
[2023-10-04 01:29] LABS: B. PARAPERTUSSIS- RESP PCR PAN NOT DETECTED; B. PERTUSSIS- RESP PCR PANEL NOT DETECTED; C. PNEUMONIAE- RESP PCR PANEL NOT DETECTED; CORONAVIRUS 229E-RESP PCR NOT DETECTED; CORONAVIRUS HKU1-RESP PCR NOT DETECTED; CORONAVIRUS NL63-RESP PCR NOT DETECTED; CORONAVIRUS OC43-RESP PCR NOT DETECTED; HUMAN METAPNEUMOVIRUS NOT DETECTED; INFLUENZA A- RESP PCR PANEL NOT DETECTED; INFLUENZA B - RESP PCR PANEL NOT DETECTED; M. PNEUMONIAE- RESP PCR PANEL NOT DETECTED; PARAINFLUENZA VIRUS 1 NOT DETECTED; PARAINFLUENZA VIRUS 2 NOT DETECTED; PARAINFLUENZA VIRUS 3 NOT DETECTED; PARAINFLUENZA VIRUS 4 NOT DETECTED; RHINOVIRUS/ENTEROVIRUS NOT DETECTED; RSV- RESP PCR PANEL NOT DETECTED; SARS-CoV-2 -RESP PCR PANEL NOT DETECTED
--- NOTE | 2023-10-04 02:27 | HISTORY & PHYSICAL EXAMINATION ---
Chief Complaint - Chief Complaint Chief Complaint: AMS History of Present Illness - Admitted From Admitted From:: ER - History Obtained From Records Reviewed: Yes History obtained from: Staff, chart Exam Limitations: Pt condition, virtual exam - History of Present Illness HPI Comment/Other: H&P was conducted via video remotely, using Access Cart. Patient is in [place]. Physician is in [place]. No one is at bedside. Unable to obtain history from pt d/t pt's clinical condition. History obtained from staff, chart. 83 yo F with PMH of Dementia, Depression/Anxxiety, HTN, GERD, RA presented to the ER from her [place] with c/o AMS. Per EMS staff, they were called d/t pt's AMS. She was unresponsive when they arrived at the [place]. She had evidence of vomitus on her. Initial pOx was 65% RA, which improved to 90s% with 100% NRB. T102F. No further history available. In the ER, T38.7C, RR 40-22, HR 140-100, SpO2 97% on 100% NRB O2 Hgb 11.1, CR 1.4, Glc 168, LA 2.0, U/A neg, Resp panel neg, BC pending CXR: B/L patchy interstitial prominence, R>L Pt was given IVF, Tylenol, Albuterol, Cefepime/Flagyl/Vancomycin n the ER Pt's paperwork includes POLST form, which says DNR/DNI and comfort measures, but antibiotics okay. ER Physician left vm with Primary contact/POA (Bianca Sewell) and also D/W NH staff, who explained that they also left vm with family and were not able to reach them. History - Past Medical History Cardiovascular: reports: Hypertension Respiratory: reports: Shortness of breath, Other Neuro: reports: Dementia Endocrine/Autoimmune: reports: None GI: reports: GERD, Hiatal hernia, Colon polyps : reports: None Psych: reports: Depression, Anxiety Musculoskeletal: reports: Osteoarthritis, Rheumatoid arthritis Derm: reports: Psoriasis, Rosacea MRSA Hx?: No - Past Surgical History General: reports: Colonoscopy, EGD /[employer]: reports: section, Hysterectomy HEENT: reports: Cataracts - POLST Patient has POLST: No Meds/Allgy - Home Medications Home Medications: Ambulatory Orders Medication Instructions Recorded Confirmed Cholecalciferol (Vitamin D3) 4,000 unit PO DAILY 12/31/12 10/04/23 [Vitamin D3] Sulfasalazine [Sulfazine] 1,000 mg PO BID 12/31/12 10/04/23 Donepezil HCl [Aricept] 10 mg ORAL DAILY 12/08/15 10/04/23 Metoclopramide [Reglan] 5 mg QID 07/26/18 10/04/23 Quetiapine Fumarate 50 mg PO DAILY 07/26/18 10/04/23 Sertraline [Zoloft] 50 mg PO DAILY 12/01/18 10/04/23 Acetaminophen [Acetaminophen Extra 1,000 mg PO BID 10/04/23 10/04/23 Strength] Acetaminophen [Acetaminophen Extra 1,000 mg PO BID PRN 10/04/23 10/04/23 Strength] Albuterol Sulfate [Proair 2 puffs IH Q4HR PRN 10/04/23 10/04/23 Digihaler] Docusate Sodium 100Mg Capsule 200 mg PO BID PRN 10/04/23 10/04/23 [Colace 100Mg Capsule] Risperidone [Risperdal] 1 mg PO BID 10/04/23 10/04/23 Senna [Senokot] 1 tab PO BID 10/04/23 10/04/23 Sertraline [Zoloft] 100 mg PO DAILY 10/04/23 10/04/23 polyethylene glycoL 3350 17 gm PO DAILY 10/04/23 10/04/23 [Polyethylene Glycol 3350] traZODone [Desyrel] 1 tab PO DAILY PM 10/04/23 10/04/23 - Allergies Allergies/Adverse Reactions: Allergies Allergy/AdvReac Type Severity Reaction Status Date / Time etanercept [From Enbrel] Allergy Unknown Verified 10/03/23 23:47 Review of Systems - All Other Systems All Other Systems: reports: Other (Unable to obtain d/t patient's clinical condition) Exam - Vital Signs Reviewed Vital Signs: Yes Vital Signs: Vital Signs x48h Temp Pulse Resp BP Pulse Ox O2 Flow Rate 10/04/23 02:00 37.8 C 106 H 36 H 102/56 L 96 10/04/23 01:26 105 H 40 H 117/53 L 94 10/04/23 01:00 114 H 40 H 127/61 98 10/04/23 00:55 107 H 44 H 15 10/04/23 00:30 113 H 42 H 107/85 H 97 10/04/23 00:03 135 H 40 H 137/68 H 97 10/03/23 23:47 38.7 C H 140 H 22 173/72 H 83 L - Physical Exam General Appearance: positive: Lethargic Eyes Bilateral: positive: Other (per ER Provider: no icterus) ENT: positive: Dry mucous membranes Respiratory: positive: Other (no access to stethoscope; per ER Provider: +diffuse crackles) Cardiovascular: positive: Other (no access to stethoscope; per ER Provider: RR, Tachy, no murmurs) Abdomen: positive: Other (per ER Provider: non-distended, NT, Soft) Extremities: positive: Other (per ER Provider: no edema) Neurologic/Psychiatric: positive: Other (Pt lying in hospital bed with FM on, not responding to verbal stimulation or answering questions; per ER Provider: has been obtunded since arrival to ER.) Conclusion/Plan - Problem List (1) Sepsis Conclusion/Plan: AMS Sepsis Pneumonia, B/L, R>L Acute Respiratory Failure with Hypoxia Fever Tachycardia Tachypnea Lactic Acidosis -most likely aspiration Pneumonia -EMS staff reported evidence of vomitus on her. -EMS reported initial pOx was 65% RA, which improved to 90s% with 100% NRB and T102F -In the ER, T38.7C, RR 40-22, HR 140-100, SpO2 97% on 100% NRB O2 -LA 2.0, U/A neg, Resp panel neg, BC pending -CXR: B/L patchy interstitial prominence, R>L -Pt was given IVF, Tylenol, Albuterol, Cefepime/Flagyl/Vancomycin n the ER -Pt's paperwork includes POLST form, which says DNR/DNI and comfort measures, but antibiotics okay. -ER Physician left vm with Primary contact/POA (Bianca Sewell) and also D/W NH staff, who explained that they also left vm with family and were not able to reach them. -admit to ICU for close monitoring -NPO d/t lethargy/aspiration risk; hold all home PO meds -continue O2 support PRN -continue Albuterol PRN -IVF -continue Cefepime/Flagyl/Vancomycin for now. -will need to D/W family/POA RE: further dispo CHINTAN -CR 1.4 -IVF Dementia Depression/Anxxiety -hold home medications: Donepezil, Quetiapine, Zoloft, Trazodone d/t AMS RA -hold home medications: Sulfasalazine d/t AMS VTE Prophylaxis: SCDs Code Status: DNR/DNI per [place] paperwork ~Megan Mills MD Hospitalist Qualifiers: Sepsis type: sepsis due to unspecified organism Sepsis acute organ dysfunction status: unspecified Qualified Code(s): A41.9 - Sepsis, unspecified organism - Lab Results Lab results reviewed: Yes Fish Bones: 10/03/23 23:50 10/03/23 23:50
[2023-10-04] MEDS ORDERED: ONDANSETRON 4 MG/2 ML VIAL IVP PRN (02:35)
[2023-10-04] MEDS ORDERED: ALBUTEROL NEB 2.5 MG/3 ML INH PRN (02:35)
[2023-10-04] MEDS ORDERED: ACETAMINOPHEN 1,000 MG/100 ML 1,000 MG/100 ML BAG IV PRN (02:40)
[2023-10-04] MEDS: SODIUM CHLORIDE FLUSH 0.9% 10 ML SYRINGE IVP PRN (04:00)
[2023-10-04] MEDS: LACTATED RINGERS 1,000 ML IV SCH (04:00)
[2023-10-04 05:01] LABS: BASOPHILS % (AUTO) 1.1 %; HCT - HEMATOCRIT 31.2 % (37.0-47.0); HGB - HEMOGLOBIN 9.4 g/dL (12.0-16.0); LYMPHOCYTES % (AUTO) 6.7 %; MEAN CORPUSCULAR HEMOGLOBIN 30.3 pg (27.0-31.0); MEAN CORPUSCULAR HGB CONC 30.1 g/dL (32.0-36.0); MEAN CORPUSCULAR VOLUME 100.6 fL (81.0-99.0); MONOCYTES % (AUTO) 8.4 %; NEUTROPHILS % (AUTO) 83.3 %; PLT - PLATELET COUNT 249 10^3/uL (130-450); RED CELL DISTRIBUTION WIDTH 15.8 % (12.0-15.0); SLIDE REVIEW? Indicated; WHITE BLOOD COUNT 5.7 x10^3/uL (4.8-10.8)
[2023-10-04 05:02] LABS: ABNORMAL LYMPHS % (MANUAL) 0 %
[2023-10-04 05:11] LABS: CALCIUM, IONIZED 1.18 mmol/L (1.15-1.33); VBG PH 7.333 (7.31-7.41)
[2023-10-04 05:12] LABS: MAGNESIUM 1.9 mg/dL (1.7-2.3)
[2023-10-04 05:18] LABS: CALCIUM 9.2 mg/dL (8.5-10.3); CREATININE 1.3 mg/dL (0.6-1.3); POTASSIUM 3.5 mmol/L (3.5-4.5)
[2023-10-04 05:24] LABS: BAND NEUTROPHILS % (MANUAL) 29 %; LYMPHOCYTES # (MANUAL) 0.3 10^3/uL (1.5-3.5); LYMPHOCYTES % (MANUAL) 6 %; METAMYELOCYTES % (MANUAL) 2 %; MONOCYTES # (MANUAL) 0.3 10^3/uL (0.0-1.0); MYELOCYTES % (MANUAL) 1 %; NEUTROPHILS # (MANUAL) 4.8 10^3/uL (1.5-6.6)
[2023-10-04 05:26] LABS: PLATELET ESTIMATE, MANUAL NORMAL (130-450,000) (NORMAL); PLATELET MORPHOLOGY NORMAL APPEARANCE (NORMAL); RBC MORPHOLOGY (MULTIPLE) NORMAL APPEARANCE (NORMAL); WBC MORPHOLOGY (MULTIPLE) 1+ DOHLE BODIES (NORMAL)
[2023-10-04 05:27] LABS: DIFFERENTIAL COMMENT MANUAL DIFFERENTIAL
[2023-10-04] MEDS: POTASSIUM CHLOR 10 MEQ/100 ML 10 MEQ/100 ML BAG IV SCH (06:04)
[2023-10-04] MEDS ORDERED: metroNIDAZOLE 500 MG/100 ML 500 MG/100 ML BAG IV SCH (08:00)
[2023-10-04 08:44] VITALS: BP 124/89; O2SAT 95
[2023-10-04] MEDS ORDERED: SODIUM CHLORIDE FLUSH 0.9% 10 ML SYRINGE IVP SCH (09:00)
--- NOTE | 2023-10-04 09:06 | PROVIDER PROGRESS NOTE ---
Progress Note Patient is an 83 -year-old female admitted overnight from [facility]. She has a known history of dementia and is nonverbal at baseline. She has a POLST form stating comfort measures only. She was admitted after an episode of vomiting and perceived change in mental status, although this is somewhat difficult to ascertain because the POA states her mental status has been essentially unresponsive for several months now. She was also noted to have emesis and low oxygen levels suggesting a possible aspiration event causing aspiration pneum onia and sepsis. After admission to ICU with initiation of oxygen via nonrebreather as well as antibiotics, IV fluids, and other appropriate treatment interventions, the patient's power of commercial real estate attorney, Bianca, arrived to discuss goals of care. It was clarified by Bianca that based on previous conversations, and general goals of care, that at this time in order to respect the patient's wishes that we would Should withdrawal antibiotic treatment, and transition to comfort care. It was explicitly explained to me by ROSA MARIA Valenzuela, that she would like to remove any intervention that is not directly enhancing the patient's comfort, and specifically she requested removal of oxygen, IV fluids. She voiced understanding that in doing so, we will likely require the use of medications such as morphine and Ativan to address air hunger, which will likely result in the patient's hastened expiration. She voiced understanding and agreement again reiterating that the primary focus is the patient's comfort, and a desire to not prolong any suffering. This is long been the goal of care Even prior to this admission. At this point, orders have been placed to withdraw antibiotics and other treatment modalities, and comfort care orders were placed.
[2023-10-04] MEDS: MORPHINE 10 MG/ML VIAL SUBQ PRN (10:24)
[2023-10-04] MEDS: LORazepam 2 MG/ML VIAL IVP PRN (10:24)
--- NOTE | 2023-10-04 10:44 | PHARMACY PROGRESS NOTE ---
- Best Possible Medication History Admit Date and Time: 10/04/23 0235 Processed by: Pharmacy (Medication Reconciliation completed by Rail BonderDena.) Medications reviewed in ED?: No Medication History completed: Yes Patient Interview: Pt unable to participate Secondary Source(s): Facility MAR as ONLY source As the person ultimately responsible for medication therapy, providers are able to order a medication from an existing home medication list in [facility] via the "Reconcile Routine" prior to Confirmation of that medication by direct support specialist. Such practice is discouraged except when the physician, in their clinical judgment, deems that a medical need exists for a medication without regard to previous use.
[2023-10-04] MEDS ORDERED: CEFEPIME 2 GM in SODIUM CHLORIDE 0.9% MINIBAG 100 ML IV SCH (12:00)
[2023-10-04] MEDS: MORPHINE PCA 50 MG IV PRN (17:37)
--- NOTE | 2023-10-05 10:35 | DISCHARGE SUMMARY ---
Discharge Summary Admit Date: 10/04/23 Discharge Date: 10/04/23 Discharging Provider: Tommie Cortez MD Condition at Discharge: Critical Discharge Disposition: 20 - HPI History of Present Illness: H&P was conducted via video remotely, using Access Cart. Patient is in [place]. Physician is in [place]. No one is at bedside. Unable to obtain history from pt d/t pt's clinical condition. History obtained from staff, chart. 83 yo F with PMH of Dementia, Depression/Anxxiety, HTN, GERD, RA presented to the ER from [place] with c/o AMS. Per EMS staff, they were called d/t pt's AMS. She was unresponsive when they arrived at the [place]. She had evidence of vomitus on her. Initial pOx was 65% RA, which improved to 90s% with 100% NRB. T102F. No further history available. In the ER, T38.7C, RR 40-22, HR 140-100, SpO2 97% on 100% NRB O2 Hgb 11.1, CR 1.4, Glc 168, LA 2.0, U/A neg, Resp panel neg, BC pending CXR: B/L patchy interstitial prominence, R>L Pt was given IVF, Tylenol, Albuterol, Cefepime/Flagyl/Vancomycin n the ER Pt's paperwork includes POLST form, which says DNR/DNI and comfort measures, but antibiotics okay. ER Physician left vm with Primary contact/POA (Bianca Sewell) and also D/W NH staff, who explained that they also left vm with family and were not able to reach them. - HOSPITAL COURSE Hospital Course: Patient is an 83 -year-old female admitted [facility] from [facility] She has a known history of dementia and is nonverbal at baseline. She has a POLST form stating comfort measures only. She was admitted after an episode of vomiting an d perceived change in mental status, although this is somewhat difficult to ascertain because the POA states her mental status has been essentially unresponsive for several months now. She was also noted to have emesis and low oxygen levels suggesting a possible aspiration event causing aspiration p neumonia and sepsis. After admission to ICU with initiation of oxygen via nonrebreather as well as antibiotics, IV fluids, and other appropriate treatment interventions, the patient's power of tax associate attorney, Bianca, arrived to discuss goals of care. It was clarified by Bianca that based on previous conversations, and general goals of care, that at this time in order to respect the patient's wishes that we would Should withdrawal antibiotic treatment, and transition to comfort care. It was explicitly explained to me by ROSA MARIA Valenzuela, that she would like to remove any intervention that is not directly enhancing the patient's comfort, and specifically she requested removal of oxygen, IV fluids. She voiced understanding that in doing so, we will likely require the use of medications such as morphine and Ativan to address air hunger, which will likely result in the patient's hastened expiration. She voiced understanding and agreement again reiterating that the primary focus is the patient's comfort, and a desire to not prolong any suffering. This is long been the goal of care Even prior to this admission. At this point, orders have been placed to withdraw antibiotics and other treatment modalities, and comfort care orders were placed. Patient was started on a morphine drip with a basal rate of 2 mg/h due to persistent discomfort and air hunger. Several hours later, at 19:55, the patient peacefully. - ALLERGIES Allergies/Adverse Reactions: Allergies Allergy/AdvReac Type Severity Reaction Status Date / Time etanercept [From Enbrel] Allergy Unknown Verified 10/03/23 23:47 - MEDICATIONS Home Medications: Ambulatory Orders Medication Instructions Recorded Confirmed Cholecalciferol (Vitamin D3) 4,000 unit PO DAILY 12/31/12 10/04/23 [Vitamin D3] Sulfasalazine [Sulfazine] 1,000 mg PO BID 12/31/12 10/04/23 Donepezil HCl [Aricept] 10 mg ORAL HS 12/08/15 10/04/23 Metoclopramide [Reglan] 5 mg QID 07/26/18 10/04/23 Quetiapine Fumarate 50 mg PO DAILY 07/26/18 10/04/23 Sertraline [Zoloft] 50 mg PO 1200 12/01/18 10/04/23 Acetaminophen [Acetaminophen Extra 1,000 mg PO BID 10/04/23 10/04/23 Strength] Acetaminophen [Acetaminophen Extra 1,000 mg PO BID PRN 10/04/23 10/04/23 Strength] Albuterol Sulfate [Proair 2 puffs IH Q4HR PRN 10/04/23 10/04/23 Digihaler] Docusate Sodium 100Mg Capsule 200 mg PO BID PRN 10/04/23 10/04/23 [Colace 100Mg Capsule] Risperidone [Risperdal] 1 mg PO BID 10/04/23 10/04/23 Senna [Senokot] 8.6 mg PO BID 10/04/23 10/04/23 Sertraline [Zoloft] 100 mg PO DAILY 10/04/23 10/04/23 polyethylene glycoL 3350 17 gm PO Q48H 10/04/23 10/04/23 [Polyethylene Glycol 3350] traZODone [Desyrel] 50 mg PO HS 10/04/23 10/04/23 - LABS Result Diagrams: 10/04/23 04:35 10/04/23 04:35
== END 2023-10-04 19:55 | disposition expired | DRG 871 ==
LOC: EDUNIT# → ED 23:42 → ICU 10-04 02:35 → MS2 10-04 19:03
PROVIDERS: ADMIT Internal Medicine; ATTEND Family Medicine Sports Medicine
DX: A41.9 Sepsis, unspecified organism (principal); J44.0 Chronic obstructive pulmonary disease with (acute) lower respiratory infection; J18.9 Pneumonia, unspecified organism; J96.01 Acute respiratory failure with hypoxia; F03.94 Unspecified dementia, unspecified severity, with anxiety; F03.93 Unspecified dementia, unspecified severity, with mood disturbance; E87.20 Acidosis, unspecified; N17.9 Acute kidney failure, unspecified; I10 Essential (primary) hypertension; R00.0 Tachycardia, unspecified; K21.9 Gastro-esophageal reflux disease without esophagitis; R91.8 Other nonspecific abnormal finding of lung field; Z20.818 Contact with and (suspected) exposure to other bacterial communicable diseases; Z20.822 Contact with and (suspected) exposure to COVID-19; Z20.828 Contact with and (suspected) exposure to other viral communicable diseases; M06.9 Rheumatoid arthritis, unspecified; Z51.5 Encounter for palliative care; Z66 Do not resuscitate; Z79.899 Other long term (current) drug therapy
CPT/HCPCS: 36415; 51702; 71045; 80048; 80053; 81001; 82330; 83605; 83735; 83880; 84100; 85025; 87040; 87150; 87154; 87633; 93005; 94640; 96365; 96366; 96367; 96368; 99285; J0131; J2060; J3370; J7120; 84132; 87086